=== PATIENT | male | born 1955 ===

== ENCOUNTER 2021-12-19 08:21 | Outpatient (REF) | payer MEDICARE, MEDICAID, SELFPAY ==
[2021-12-19 08:32] LABS: MANUAL DIFF FLAG NO
[2021-12-19 09:28] LABS: Basophils Percent Auto 0.5 % (0-2); Eosinophils Absolute Auto 0.4 X10*3/uL (0.0-0.4); Eosinophils Percent Auto 4.4 % (0-4); Hematocrit 43.6 % (42.0-52.0); Hemoglobin 14.2 g/dl (14.0-18.0); Imm Gran Abs Auto 0.01 X10*3/uL (0.00-0.03); Imm Gran Pct Auto 0.1 % (0.0-0.4); Lymphocytes Absolute Auto 3.2 X10*3/uL (1.2-4.9); Lymphocytes Percent Auto 39.7 % (20-40); Mean Corpuscular HGB Conc 32.6 g/dl (31.0-36.0); Mean Corpuscular Hemoglobin 25.8 pg (27.0-33.0); Mean Corpuscular Volume 79.1 fL (80.0-98.0); Mean Platelet Volume 9.7 fL (9.4-12.4); Monocytes Absolute Auto 0.5 X10*3/uL (0.1-1.2); Monocytes Percent Auto 6.6 % (2-11); Neutrophils Absolute Auto 3.9 x10*3/uL (2.0-8.3); Neutrophils Percent Auto 48.7 % (45-73); Platelet Count 234 X10*3/uL (160-400); Red Blood Count 5.51 X10*6/uL (4.60-5.80); Red Cell Distribution Width 14.7 % (11.0-16.0)
[2021-12-19 09:29] LABS: Appearance Urine CLEAR; Color Urine YELLOW; Glucose Urine UA NEG (NEG); Leukocyte Esterase Urine NEG (NEG); Nitrite Urine NEG (NEG); UACC Culture Trigger NO; Urine Blood TRACE (NEG); Urine Ketones NEG (NEG); Urine Protein NEG (NEG-TRACE)
[2021-12-19 09:46] LABS: Alanine Aminotransferase 30 U/L (0-40); Albumin Level 4.2 g/dL (3.5-5.0); Alkaline Phosphatase 65 U/L (39-117); Anion Gap 13 (12-20); Aspartate Amino Transferase 23 U/L (5-37); Bilirubin Total 0.9 mg/dL (0.0-1.0); Blood Urea Nitrogen 19 mg/dL (9-16); Calcium 9.7 mg/dL (8.4-10.2); Carbon Dioxide 31 mmol/L (22-29); Chloride 103 mmol/L (96-108); Cholesterol 176 mg/dL; Estimated Glomerular Filt Rate > 60; Glucose Fasting 133 mg/dL (60-99); HDL Cholesterol 51 mg/dL; LDL Cholesterol Calculated 102 mg/dl; Potassium 4.3 mmol/L (3.3-5.1); Sodium 143 mmol/L (135-145); Total Protein 7.6 g/dL (6.5-8.0); Triglycerides 118 mg/dL
[2021-12-19 09:51] LABS: Mucus Urine TRACE /LPF; RBC Urine 0-2 /HPF (0); Squamous Epithelial Cell Urine TRACE /LPF; WBC Urine 0 /HPF (0-4)
[2021-12-19 10:09] LABS: TSH reflex Free T4 1.05 uIU/mL (0.32-4.0); Vitamin D 25-OH Total 15.1 ng/mL (>30)
[2021-12-19 10:11] LABS: Estimated Average Glucose 157 mg/dL; Hemoglobin A1c % 7.1 %
[2021-12-19 14:41] LABS: Creatinine Urine 120.08 mg/dL; Microalbum/Creatinine Ratio Ur 5.8 ug/mg cr
== END 2021-12-19 08:22 | disposition home or self-care (01) ==
LOC: HO.LAB 08:21
PROVIDERS: PCP Internal Medicine; Visit Provider Internal Medicine
DX: E55.9 Vitamin D deficiency, unspecified (principal); E78.00 Pure hypercholesterolemia, unspecified; E11.9 Type 2 diabetes mellitus without complications; I10 Essential (primary) hypertension
CPT/HCPCS: 36415; 80053; 80061; 81001; 82043; 82306; 83036; 84443; 85025

== ENCOUNTER 2022-03-11 03:43 | Emergency (ER) | payer MEDICARE, MEDICAID, SELFPAY ==
[2022-03-11 03:59] VITALS: BP 134/87; PULSE 101; RESP 16; TEMP 36.4; O2SAT 95; BMI 30.9
--- NOTE | 2022-03-11 04:00 | ED.ALLEREA ---
HPI - Allergic Reaction General Chief complaint: Allergic Reaction Stated complaint: ?Itchy/?Allergic reaction Time Seen by Provider: 03/11/22 03:59 Source: patient and family () Mode of arrival: ambulatory Limitations: no limitations History of Present Illness HPI narrative: 67 years old male came in for evaluation after having allergic reaction. Patient ate tuna sandwich last night then shortly after started to have rash and itching, patient now complaining of difficulty breathing. No documented seafood allergy in the past. Patient is allergic to peanut. Related Data Previous Rx's Medication Instructions Recorded blood sugar diagnostic (FreeStyle #100 ea 12/18/21 Lite Strips) lancets 28 gauge (FreeStyle 28 gauge TOPICAL DAILY #100 ea 12/18/21 Lancets) metformin 500 mg tablet 500 mg PO DAILY 90 Days #90 tab 12/18/21 metoprolol tartrate 50 mg tablet 50 mg PO BID 90 Days #180 tab 12/18/21 simvastatin 20 mg tablet 20 mg PO BEDTIME 90 Days #90 tab 12/18/21 Allergies Allergy/AdvReac Type Severity Reaction Status Date / Time nut - unspecified Allergy Severe Difficulty Verified 03/11/22 04:02 Breathing Review of Systems Review of Systems: All other systems are reviewed and are negative Constitutional: Reports as per HPI and Reports no additional constitutional complaints Eyes: Reports as per HPI and Reports no additional eye complaints Reports system reviewed and no additional complaints, except as documented Cardiovascular: Reports as per HPI and Reports no additional cardiovascular complaints Respiratory: Reports as per HPI and Reports no additional respiratory complaints Gastrointestinal: Reports as per HPI and Reports no additional gastrointestinal complaints Genitourinary: Reports no additional female genitourinary complaints Musculoskeletal: Reports no additional musculoskeletal complaints Skin/Breast: Reports system reviewed and no additional complaints, except as docu Psychiatric: Reports no additional psychiatric complaints Endocrine: Reports no additional endocrine complaints Hematologic/Lymphatic: Reports no additional hematologic/lymphatic complaints Allergic/Immunologic: Reports no additional allergic/immunologic complaints Reports system reviewed and no additional complaints, except as documented and Reports Abnormal speech present [facility] Past Medical History Medical History Allergic rhinitis Benign prostatic hyperplasia without lower urinary tract symptoms Diabetes mellitus Facet arthritis, degenerative, cervical spine Hypertension Obesity (BMI 30-39.9) Primary osteoarthritis of left knee Pure hypercholesterolemia Vitamin D deficiency Surgical History History of cervical spinal surgery History of prostate biopsy (~2019) Family History Family History Father No problems noted. Mother No problems noted. Social History Social History Housing: House Patient Tobacco Use Status: Never used Tobacco e-Cigarette/Vaping Use: Never Used Second Hand Smoke Exposure: Yes Advance Directives: No Current occupational status: retired Cognitive needs: No Hearing needs: No Vision needs: No Physical Exam ED Vital Signs: Vital Signs - 24 hr 03/11/22 03:59 Temperature 97.6 F Pulse Rate 101 H Respiratory Rate 16 Blood Pressure 134/87 Pulse Oximetry 95 BMI result Body Mass Index 30.9 Vital signs have been reviewed as appeared to be correct. Blood pressure normal. Heart rate normal. Respiration rate normal. Temperature normal. Oxygen saturation normal. Appearance: Alert. Oriented X3. No acute distress. Head: Normal external exam. Normocephalic. Atraumatic. No Hyde signs noted. No raccoon eyes noted Eyes: PERRLA. EOMI. Conjunctiva and sclera normal. Eyelids normal. ENT: TM's Normal. Pharynx normal. Uvula midline. Moist mucous membranes. No trismus noted. No drooling noted. No muffled voice noted. Patent airway with no stridor. Neck: Normal inspection. Neck supple. FROM. No adenopathy. Thyroid Normal. No meningeal signs. No neck mass noted. CVS: Normal heart rate and rhythm. Heart sound normal. No murmurs noted. Pulses normal throughout. Respiratory: No respiratory distress. Painless inspiration. Breath sounds normal. No wheezes/rales/rhonchi noted. Chest nontender. No accessory muscle usage noted or decreased air movement noted. Abdomen: Soft and nontender. Bowel sounds normal in all 4 quadrants. No distention noted. No organomegaly noted. No visible injury noted. Back: No CVA tenderness. Full range of motion noted. Skin: Diffuse hives. Extremities: No lower extremity edema. Extremities exhibit normal range of motion. Extremities nontender. Neuro: Oriented X 3. Cranial nerve exam: II-XII are grossly intact No motor deficit. No sensory deficit. Reflexes normal. Course Course Course Narrative: Assessment and plan. Allergic reaction after eating tuna, patient responded well to IV fluids/Pepcid/Solu-Medrol/Benadryl IV. No hives, patent airway. Discharge Plan Discharge Clinical Impression: Allergic reaction Patient Disposition: Home, Self-Care Instructions: General Allergic Reaction (ED) Prescriptions: No Action (DME) FreeStyle Lite Strips Strip See Rx Instructions .ROUTE .MEDSUPPLY Qty: 100 11RF Rx Instructions: As directed once a day lancets [FreeStyle Lancets] 28 gauge misc 28 gauge topical DAILY Qty: 100 11RF Rx Instructions: test blood sugar as directed once a day metformin 500 mg tablet 500 mg PO DAILY 90 Days Qty: 90 1RF metoprolol tartrate 50 mg tablet 50 mg PO BID 90 Days Qty: 180 1RF simvastatin 20 mg tablet 20 mg PO BEDTIME 90 Days Qty: 90 1RF Referrals: Nir Moreno MD [Primary Care Provider] -
[2022-03-11] MEDS: methylPREDNISolone Sod Succ 125 MG/2 ML VIAL IVPUSH (04:10)
[2022-03-11] MEDS: diphenhydrAMINE HCL 50 MG/ML VIAL 25 MG IVPUSH (04:10)
[2022-03-11] MEDS: 0.9 % Sodium Chloride 1,000 ML 999 ML IV (04:10)
[2022-03-11] MEDS: Famotidine/PF 20 MG/2 ML VIAL IVPUSH (04:10)
--- NOTE | 2022-03-11 04:14 | PC.NURSE ---
MD at bedside, pt medicated per DEC.
--- NOTE | 2022-03-11 05:50 | PC.NURSE ---
Pt reports relief of hives/itching @ this time. aware.
== END 2022-03-11 06:47 | disposition home or self-care (01) ==
PROVIDERS: Emergency Provider Emergency Medicine; PCP Internal Medicine
DX: L50.0 Allergic urticaria (principal); Z79.899 Other long term (current) drug therapy
CPT/HCPCS: 96361; 96374; 96375; 99282; 99284; J1200; J2930

== ENCOUNTER 2022-04-15 07:14 | Outpatient (REF) | payer MEDICARE, MEDICAID, SELFPAY ==
[2022-04-15 08:02] LABS: Estimated Average Glucose 146 mg/dL; Hemoglobin A1c % 6.7 %
[2022-04-15 08:06] LABS: Appearance Urine CLEAR; Color Urine YELLOW; Glucose Urine UA NEG (NEG); Leukocyte Esterase Urine NEG (NEG); Nitrite Urine NEG (NEG); Specific Gravity - Urine 1.025 (1.005-1.025); UACC Culture Trigger NO; Urine Blood TRACE (NEG); Urine Ketones NEG (NEG); Urine Protein NEG (NEG-TRACE)
[2022-04-15 08:23] LABS: Creatinine Urine 133.06 mg/dL; Microalbum/Creatinine Ratio Ur 7.5 ug/mg cr
[2022-04-15 08:38] LABS: Alanine Aminotransferase 29 U/L (0-40); Albumin Level 4.2 g/dL (3.5-5.0); Alkaline Phosphatase 65 U/L (39-117); Anion Gap 12 (12-20); Aspartate Amino Transferase 19 U/L (5-37); Bilirubin Total 0.8 mg/dL (0.0-1.0); Blood Urea Nitrogen 18 mg/dL (9-16); Calcium 8.8 mg/dL (8.4-10.2); Carbon Dioxide 26 mmol/L (22-29); Chloride 104 mmol/L (96-108); Cholesterol 167 mg/dL; Estimated Glomerular Filt Rate > 60; Glucose Fasting 137 mg/dL (60-99); HDL Cholesterol 47 mg/dL; LDL Cholesterol Calculated 94 mg/dl; Potassium 4.1 mmol/L (3.3-5.1); Sodium 138 mmol/L (135-145); Total Protein 7.4 g/dL (6.5-8.0); Triglycerides 130 mg/dL
[2022-04-15 08:50] LABS: Vitamin D 25-OH Total 14.1 ng/mL (>30)
[2022-04-15 09:11] LABS: RBC Urine 0-2 /HPF (0); WBC Urine 0 /HPF (0-4)
== END 2022-04-15 07:15 | disposition home or self-care (01) ==
LOC: HO.LAB 07:14
PROVIDERS: PCP Internal Medicine; Visit Provider Internal Medicine
DX: E11.9 Type 2 diabetes mellitus without complications (principal); E55.9 Vitamin D deficiency, unspecified; E78.00 Pure hypercholesterolemia, unspecified
CPT/HCPCS: 36415; 80053; 80061; 81001; 81003; 82043; 82306; 83036

== ENCOUNTER 2022-08-24 08:07 | Outpatient (REF) | payer MEDICARE, MEDICAID, SELFPAY ==
[2022-08-24 08:15] LABS: MANUAL DIFF FLAG NO
[2022-08-24 08:46] LABS: Basophils Percent Auto 0.4 % (0-2); Eosinophils Absolute Auto 0.3 X10*3/uL (0.0-0.4); Eosinophils Percent Auto 4.8 % (0-4); Hematocrit 40.2 % (42.0-52.0); Imm Gran Abs Auto 0.01 X10*3/uL (0.00-0.03); Imm Gran Pct Auto 0.1 % (0.0-0.4); Lymphocytes Absolute Auto 2.2 X10*3/uL (1.2-4.9); Lymphocytes Percent Auto 32.1 % (20-40); Mean Corpuscular HGB Conc 32.3 g/dl (31.0-36.0); Mean Corpuscular Hemoglobin 25.6 pg (27.0-33.0); Mean Corpuscular Volume 79.1 fL (80.0-98.0); Mean Platelet Volume 10.4 fL (9.4-12.4); Monocytes Absolute Auto 0.5 X10*3/uL (0.1-1.2); Neutrophils Absolute Auto 3.7 x10*3/uL (2.0-8.3); Neutrophils Percent Auto 55.6 % (45-73); Platelet Count 214 X10*3/uL (160-400); Red Blood Count 5.08 X10*6/uL (4.60-5.80); Red Cell Distribution Width 14.8 % (11.0-16.0); White Blood Count 6.7 X10*3/uL (4.8-10.8)
[2022-08-24 08:55] LABS: Estimated Average Glucose 151 mg/dL; Hemoglobin A1c % 6.9 %
[2022-08-24 09:33] LABS: Alanine Aminotransferase 27 U/L (0-40); Albumin Level 4.2 g/dL (3.5-5.0); Alkaline Phosphatase 58 U/L (39-117); Anion Gap 14 (12-20); Aspartate Amino Transferase 20 U/L (5-37); Bilirubin Total 0.6 mg/dL (0.0-1.0); Blood Urea Nitrogen 18 mg/dL (9-16); Calcium 8.9 mg/dL (8.4-10.2); Carbon Dioxide 26 mmol/L (22-29); Chloride 106 mmol/L (96-108); Cholesterol 157 mg/dL; Estimated Glomerular Filt Rate 57; Glucose Fasting 130 mg/dL (60-99); HDL Cholesterol 47 mg/dL; LDL Cholesterol Calculated 85 mg/dl; Potassium 4.4 mmol/L (3.3-5.1); Sodium 142 mmol/L (135-145); Total Protein 7.3 g/dL (6.5-8.0); Triglycerides 129 mg/dL
[2022-08-24 09:41] LABS: TSH reflex Free T4 1.23 uIU/mL (0.32-4.0); Vitamin D 25-OH Total 14.6 ng/mL (>30)
[2022-08-24 10:42] LABS: Appearance Urine Clear; Color Urine Dark Yellow; Glucose Urine UA Negative (Negative); Leukocyte Esterase Urine Negative (Negative); Nitrite Urine Negative (Negative); PH 5.5 (5.0-9.0); Specific Gravity - Urine 1.025 (1.005-1.025); Urine Blood Negative (Negative); Urine Ketones Trace mg/dL (Negative); Urine Protein Trace mg/dL (Neg-Trace)
[2022-08-24 11:07] LABS: Creatinine Urine 344.22 mg/dL; Microalbum/Creatinine Ratio Ur 4.3 ug/mg cr
== END 2022-08-24 08:08 | disposition home or self-care (01) ==
LOC: HO.LAB 08:07
PROVIDERS: PCP Internal Medicine; Visit Provider Internal Medicine
DX: E11.9 Type 2 diabetes mellitus without complications (principal); I10 Essential (primary) hypertension; E55.9 Vitamin D deficiency, unspecified; E78.00 Pure hypercholesterolemia, unspecified
CPT/HCPCS: 36415; 80053; 80061; 81003; 82043; 82306; 83036; 84443; 85025

== ENCOUNTER 2023-06-03 16:22 | Outpatient (AMB) | payer MEDICARE, MEDICAID, SELFPAY ==
[2023-06-03 16:23] VITALS: BP 136/88; PULSE 83; O2SAT 96; BMI 32.0
--- NOTE | 2023-06-03 16:23 | A.OFFPC_ITS ---
Vital Signs 06/03/23 16:23 Height 5 ft 4 in Weight 186 lb 6 oz BMI 32.0 BP 136/88 Blood Pressure Location Lt brachial Position Sitting Pulse 83 Pulse Source Pulse Oximeter Pulse Oximetry (%) 96 Oxygen Delivery Method Room Air Intake Visit Reasons: DM, hyperlipidemia, elevated LFTs Mine Promotor Required: No Accompanied by: Self / Same As Patient Allergies nut - unspecified Allergy (Severe, Verified 06/03/23 16:56) Difficulty Breathing Medication List - Last Reconciled 06/03/23 by Nir Moreno MD blood sugar diagnostic (FreeStyle Lite Strips) As directed once a day lancets (FreeStyle Lancets) 28 gauge topical DAILY metformin 500 mg PO DAILY 90 days metoprolol tartrate 50 mg PO BID 90 days simvastatin 20 mg PO BEDTIME 90 days Tobacco use date assessed: 06/03/23 Fall risk assessment: No Falls in past year Last assessed Fall Risk: 06/03/23 Dental Screening Dental Screen Date: 06/03/23 Did you have a dental visit in the last 12 months?: No Did you have a dental problem in the last 6 months where you did not have access to dental care?: No Was dental information given to patient?: No HPI DM, hyperlipidemia, elevated LFTs HPI Details Patient comes in today for his follow up visit - was last seen in July 2022 as he missed his follow up appt earlier this year Patient states that he feels okay He denies any headaches or dizziness He denies any chest pains, no shortness of breath No nausea / vomiting, no abdominal pain No change in bowel habits noted Needs several of his Rx refilled Has no follow-up labs done recently [facility] Medical History Allergic rhinitis Benign prostatic hyperplasia without lower urinary tract symptoms Diabetes mellitus Facet arthritis, degenerative, cervical spine Hypertension Obesity (BMI 30-39.9) Primary osteoarthritis of left knee Pure hypercholesterolemia Vitamin D deficiency Surgical History History of cervical spinal surgery History of prostate biopsy (~2019) Family History Father No problems noted. Mother No problems noted. Social History Housing: House Patient Tobacco Use Status: Never used Tobacco e-Cigarette/Vaping Use: Never Used Second Hand Smoke Exposure: Yes Current occupational status: retired Cognitive needs: No Hearing needs: No Vision needs: Yes Questionnaire PHQ-9 Over the last 2 weeks, how often have you been bothered by any of the following problems? 1. Little interest or pleasure in doing things: not at all 2. Feeling down, depressed, or hopeless: not at all 3. Trouble falling or staying asleep, or sleeping too much: not at all 4. Feeling tired or having little energy: not at all 5. Poor appetite or overeating: not at all 6. Feeling bad about yourself - or that you are a failure or have let yourself or your family down: not at all 7. Trouble concentrating on things, such as reading the newspaper or watching television: not at all 8. Moving or speaking so slowly that other people could have noticed. Or the opposite - being so fidgety or restless that you have been moving around a lot more than usual: not at all 9. Thoughts that you would be better off or of hurting yourself in some way: not at all Total score: 0 Depression Screening Interpretation: Negative 52596 - PHQ-9 Billing: Yes Source: Developed by Drs. Sherman Morales, Kathrine Rolon, Maurilio Rodriguez and colleagues, with an educational maci from [employer]. Thrive Questionnaire Date Thrive assessed: 06/03/23 I am a: Patient What is your living situation today?: I have a steady place to live Within the past 12 months, did the food you bought not last and you didn't have the money to get more?: Never true Within the past 12 months, did you worry whether your food would run out before you got money to buy more?: Never true Do you have trouble paying for medicines?: No Do you have trouble getting transportation to medical appointments?: No Do you have trouble paying your heating and electricity bill?: No Do you have trouble taking care of your child, family member or friend?: No Do you have trouble with day-to-day activities such as bathing, preparing meals, shopping, managing finances, etc.?: No Are you currently unemployed and looking for a job?: No Are you interested in more education?: No Please select the resources that you would like help with: None Currently or been in a relationship where the following occur: no concerns reported AUDIT C Alcohol Use Questionnaire (AUDIT-C) 1. How often do you have a drink containing alcohol?: Never 3. How often do you have six or more drinks on one occasion?: Never Total Score: 0 Score Reviewed/Action Taken: Yes PILY-7 AMB Questionnaire PILY-7 Date PILY - 7 assessed: 06/03/23 Feeling nervous, anxious, or on edge: 0 = Not at all Not being able to stop or control worryin = Not at all Worrying too much about different things: 0 = Not at all Trouble relaxin = Not at all Being so restless that it is hard to sit still: 0 = Not at all Becoming easily annoyed or irritable: 0 = Not at all Feeling afraid as if something awful might happen: 0 = Not at all Total PILY-7 score (0-4 normal; 5-9 mild; 10-14 moderate; 15-21 severe): 0 Source: Developed by Drs. Sherman Morales, Kathrine Rolon, Maurilio Rodriguez and colleagues, with an educational maci from [employer]. Review of Systems Const Denies fatigue, Denies fever(s) and Denies headache(s) ENT Denies dysphagia, Denies dizziness, Denies otalgia, Denies headache(s), Reports neck pain (recurrent - Ibuprofen PRN helps) and Denies sore throat Card Denies chest pain, Denies palpitations and Denies dyspnea Resp Denies cough, Denies dyspnea and Denies wheezing GI Denies abdominal pain, Denies constipation, Denies dysphagia, Denies heartburn, Denies diarrhea, Denies nausea and Denies vomiting Denies dysuria and Denies nocturia Musc Reports arthralgias (left knee, on and off) and Reports neck pain (recurrent - Ibuprofen PRN helps) Neuro Denies dizziness and Denies headache(s) Endo Denies fatigue and Denies palpitations Aller/Immun Denies wheezing Physical exam (Primary Care) Vital Signs: Last Vital Signs Pulse 83 06/03/23 16:23 BP 136/88 08/11/23 16:23 Pulse Ox 96 06/03/23 16:23 Oxygen Delivery Method Room Air 06/03/23 16:23 BMI result Body Mass Index 32.0 Tobacco/Smoking Status: Tobacco use Status Tobacco use date assessed 06/03/23 06/03/23 16:30 Patient Tobacco Use Status Never used Tobacco 06/03/23 16:30 e-Cigarette/Vaping Use Never Used 06/03/23 16:30 PHQ-9: PHQ-9 Score PHQ-9: Total score 0 06/03/23 16:56 Depression Screening Interpretation: Negative Thrive Assessment: Date of Thrive Assessment Date Thrive assessed 06/03/23 06/03/23 16:30 Currently or been in a relationship where the following occur: no concerns reported Const General: no acute distress and alert HENMT Ears: TM's normal bilaterally and EAC's normal Throat: Yes posterior oropharynx normal and Yes tonsils normal (no TP congestion) Neck Neck: Yes no lymphadenopathy Resp Auscultation: clear to auscultation bilaterally, no rales and no wheezes Cardio Rate: regular rate Rhythm: regular rhythm Heart sounds: no murmurs GI Palpation (GI): Soft to palpation and nontender Auscultation: normal bowel sounds Back/Spine/Pelvis Cervical Spine: Cervical spine tenderness Thoracic/Lumbar Spine: lumbar spinal tenderness Extrem General: Yes no clubbing, cyanosis or edema Left lower extremity: knee Details: tenderness Results AMB Hemoglobin A1c AMB Hemoglobin A1c 7.0 % Last Edit by Isha Watson on 06/03/23 16:42 Results Reviewed Results Reviewed: Laboratory Last Values Hgb A1c (Clinic) 7.0 % (4.0-6.0) H 06/03/23 16:26 Assessment and Plan Assessment & Plan (1) Diabetes mellitus: Code(s): E11.9 - Type 2 diabetes mellitus without complications Qualifiers: Diabetes mellitus complication status: without complication Diabetes mellitus long term care social worker insulin use: without long term care social worker use Diabetes mellitus type: type 2 Qualified Code(s): E11.9 - Type 2 diabetes mellitus without compl ications Plan: In-office HgbA1c done today is at 7.0% (HgbA1c was at 6.9% when last checked in August 2022) - goal is <7.0% Reinforced diabetic diet Continue Metformin 500 mg QD (2) Hypertension: Code(s): I10 - Essential (primary) hypertension Qualifiers: Hypertension type: primary hypertension Qualified Code(s): I10 - Essential (primary) hypertension Plan: Reinforced low sodium diet - goal is systolic BP of 120 to 130 mm or less Continue Metoprolol tartrate 50 mg BID (3) Pure hypercholesterolemia: Code(s): E78.00 - Pure hypercholesterolemia, unspecified Plan: Has no follow up labs done prior to his appt today as he has not been back since August 2022 Reinforced low cholesterol diet Continue Simvastatin 20 mg Q HS - Rx refilled Will recheck labs his in 4 months for follow up (4) Facet arthritis, degenerative, cervical spine: Comment: S/P ACDF and posterior spinal fusion a few years ago - injury due to fall at [employer] in 2012 Code(s): M47.812 - Spondylosis without myelopathy or radiculopathy, cervical region Plan: Cerivcal spine x-rays done a couple of years ago showed (+) bony foraminal inpingement at C6-C6 bilaterally States that he has been able to manage his neck pains adequately and takes some OTC Ibuprofen when needed with (+) relief (5) Primary osteoarthritis of left knee: Code(s): M17.12 - Unilateral primary osteoarthritis, left knee Plan: Left knee x-rays last done back in October 2017 showed (+) minimal medial compartment narrowing Consider orthopedics referral if his knee symptoms progress or get worse (6) Vitamin D deficiency: Code(s): E55.9 - Vitamin D deficiency, unspecified Plan: Continue Vitamin D3 2000 units QD (7) Allergic rhinitis: Code(s): J30.9 - Allergic rhinitis, unspecified Qualifiers: Allergic rhinitis seasonality: unspecified Allergic rhinitis trigger: unspecified Qualified Code(s): J30.9 - Allergic rhinitis, unspecified Plan: Continue OTC Loratadine 10 mg QD PRN (8) Benign prostatic hyperplasia without lower urinary tract symptoms: Comment: S/P US-guided biopsy in 2019 - benign Code(s): N40.0 - Benign prostatic hyperplasia without lower urinary tract symptoms Plan: Continue Finasteride 5 mg QD Follow up with urology as scheduled (9) Obesity (BMI 30-39.9): Code(s): E66.9 - Obesity, unspecified Plan: Reinforced diet/exercise as tolerated/lose weight Plan Follow up in 4 months Orders: Orders Complete Blood Count Auto Diff 4 Months I10 - Essential (primary) hypertension Comprehensive Allgood. Panel Fast 4 Months E78.00 - Pure hypercholesterolemia, unspecified Lipid Panel 4 Months E78.00 - Pure hypercholesterolemia, unspecified Hemoglobin A1c 4 Months E11.9 - Type 2 diabetes mellitus without complications TSH reflex Free T4 4 Months E78.00 - Pure hypercholesterolemia, unspecified Vitamin D 25-OH Total 4 Months E55.9 - Vitamin D deficiency, unspecified Microalbumin, Random (w Creat) 4 Months E11.9 - Type 2 diabetes mellitus without complications UA CC w/rflx Micro + Cult 4 Months R30.0 - Dysuria AMB Hemoglobin A1c 06/03/23 E11.9 - Type 2 diabetes mellitus without complications Medications: Refilled simvastatin 20 mg PO BEDTIME 90 days 90 tabs 1RF metformin 500 mg PO DAILY 90 days 90 tabs 1RF E11.9 - Type 2 diabetes mellitus without complications metoprolol tartrate 50 mg PO BID 90 days 180 tabs 1RF I10 - Essential (primary) hypertension blood sugar diagnostic (FreeStyle Lite Strips) As directed once a day 100 ea 11RF E11.9 - Type 2 diabetes mellitus without complications lancets (FreeStyle Lancets) test blood sugar as directed once a day 28 gauge topical DAILY 100 ea 11RF E11.9 - Type 2 diabetes mellitus without complications Coding Level of Care Code Est Pt Level 4 (01503) Diagnoses Diabetes mellitus E11.9 Diabetes mellitus complication status: without complication Diabetes mellitus long term care social worker insulin use: without long term care social worker use Diabetes mellitus type: type 2 Hypertension I10 Hypertension type: primary hypertension Pure hypercholesterolemia E78.00 Facet arthritis, degenerative, cervical spine M47.812 Primary osteoarthritis of left knee M17.12 Vitamin D deficiency E55.9 Allergic rhinitis J30.9 Allergic rhinitis seasonality: unspecified Allergic rhinitis trigger: unspecified Benign prostatic hyperplasia without lower urinary tract symptoms N40.0 Obesity (BMI 30-39.9) E66.9
== END 2023-06-03 17:01 | disposition home or self-care (01) ==
PROVIDERS: Visit Provider Internal Medicine
DX: E11.9 Type 2 diabetes mellitus without complications (principal); I10 Essential (primary) hypertension; E55.9 Vitamin D deficiency, unspecified; E78.00 Pure hypercholesterolemia, unspecified; M47.812 Spondylosis without myelopathy or radiculopathy, cervical region; M17.12 Unilateral primary osteoarthritis, left knee; J30.9 Allergic rhinitis, unspecified; N40.0 Benign prostatic hyperplasia without lower urinary tract symptoms; E66.9 Obesity, unspecified
CPT/HCPCS: 83036; 99214

== ENCOUNTER 2023-10-03 06:53 | Outpatient (REF) | payer MEDICARE, MEDICAID, SELFPAY ==
[2023-10-03 07:16] LABS: MANUAL DIFF FLAG NO
[2023-10-03 07:46] LABS: Basophils Percent Auto 0.5 % (0-2); Eosinophils Absolute Auto 0.3 X10*3/uL (0.0-0.4); Eosinophils Percent Auto 4.3 % (0-4); Hematocrit 42.2 % (42.0-52.0); Hemoglobin 13.7 g/dl (14.0-18.0); Imm Gran Abs Auto 0.01 X10*3/uL (0.00-0.03); Imm Gran Pct Auto 0.1 % (0.0-0.4); Lymphocytes Absolute Auto 2.5 X10*3/uL (1.2-4.9); Lymphocytes Percent Auto 34.1 % (20-40); Mean Corpuscular HGB Conc 32.5 g/dl (31.0-36.0); Mean Corpuscular Hemoglobin 25.5 pg (27.0-33.0); Mean Corpuscular Volume 78.4 fL (80.0-98.0); Monocytes Absolute Auto 0.5 X10*3/uL (0.1-1.2); Monocytes Percent Auto 7.1 % (2-11); Neutrophils Percent Auto 53.9 % (45-73); Platelet Count 234 X10*3/uL (160-400); Red Blood Count 5.38 X10*6/uL (4.60-5.80); Red Cell Distribution Width 14.8 % (11.0-16.0); White Blood Count 7.5 X10*3/uL (4.8-10.8)
[2023-10-03 07:56] LABS: Estimated Average Glucose 169 mg/dL; Hemoglobin A1c % 7.5 % (<6.0)
[2023-10-03 08:08] LABS: Microalbum/Creatinine Ratio Ur 5.6 ug/mg cr (<30)
[2023-10-03 08:10] LABS: Appearance Urine Clear; Color Urine Dark Yellow; Glucose Urine UA 250 mg/dL (Negative); Leukocyte Esterase Urine Negative (Negative); Nitrite Urine Negative (Negative); PH 5.5 (5.0-9.0); Specific Gravity - Urine >= 1.030 (1.005-1.025); Urine Blood Negative (Negative); Urine Ketones Trace mg/dL (Negative); Urine Protein Trace mg/dL (Neg-Trace)
[2023-10-03 08:19] LABS: Alanine Aminotransferase 21 U/L (0-40); Albumin Level 4.2 g/dL (3.5-5.0); Alkaline Phosphatase 60 U/L (39-117); Anion Gap 16 (12-20); Aspartate Amino Transferase 17 U/L (5-37); Bilirubin Total 0.7 mg/dL (0.0-1.0); Blood Urea Nitrogen 18 mg/dL (9-16); Calcium 9.3 mg/dL (8.4-10.2); Carbon Dioxide 26 mmol/L (22-29); Chloride 106 mmol/L (96-108); Cholesterol 177 mg/dL (<200); Estimated Glomerular Filt Rate 58; Glucose Fasting 150 mg/dL (60-99); HDL Cholesterol 45 mg/dL (>40); LDL Cholesterol Calculated 95 mg/dL (<100); Potassium 3.8 mmol/L (3.3-5.1); Sodium 144 mmol/L (135-145); Total Protein 7.8 g/dL (6.5-8.0); Triglycerides 188 mg/dL (<150)
== END 2023-10-03 06:54 | disposition home or self-care (01) ==
LOC: HO.LAB 06:53
PROVIDERS: PCP Internal Medicine; Visit Provider Internal Medicine
DX: E11.9 Type 2 diabetes mellitus without complications (principal); E78.00 Pure hypercholesterolemia, unspecified; I10 Essential (primary) hypertension; E55.9 Vitamin D deficiency, unspecified; R30.0 Dysuria
CPT/HCPCS: 36415; 80053; 80061; 81003; 82043; 82306; 82570; 83036; 84443; 85025

== ENCOUNTER 2023-10-03 16:13 | Outpatient (AMB) | payer MEDICARE, MEDICAID, SELFPAY ==
[2023-10-03 16:20] VITALS: BP 160/86; PULSE 85; O2SAT 96; BMI 31.9
--- NOTE | 2023-10-03 16:20 | MHC.PC.OV ---
Vital Signs 10/03/23 16:20 10/03/23 17:08 Height 5 ft 4 in Weight 186 lb BMI 31.9 BP 160/86 H 140/88 H Blood Pressure Location Lt brachial Lt brachial Position Sitting Sitting Pulse 85 Pulse Source Pulse Oximeter Pulse Oximetry (%) 96 Oxygen Delivery Method Room Air Intake Visit Reasons: DM, hyperlipidemia, HTN [employer] Attendant Required: No Power Checker: Not Required per policy Accompanied by: Self / Same As Patient Allergies nut - unspecified Allergy (Severe, Verified 10/03/23 17:09) Difficulty Breathing Medication List - Last Reconciled 10/03/23 by Nir Moreno MD blood sugar diagnostic (FreeStyle Lite Strips) As directed once a day cholecalciferol (vitamin D3) 50 mcg PO DAILY 90 days lancets (FreeStyle Lancets) 28 gauge topical DAILY metformin 500 mg PO DAILY 90 days metoprolol tartrate 50 mg PO BID 90 days simvastatin 20 mg PO BEDTIME 90 days Tobacco use date assessed: 06/03/23 Fall risk assessment: No Falls in past year Last assessed Fall Risk: 10/03/23 Dental Screening Dental Screen Date: 10/03/23 Did you have a dental visit in the last 12 months?: No Did you have a dental problem in the last 6 months where you did not have access to dental care?: No Was dental information given to patient?: Patient has dentist HPI DM, hyperlipidemia, HTN HPI Details Patient comes in today for his follow up visit States that he feels okay He denies any headaches or dizziness Denies any chest pains, no SOB No nausea/vomiting, no abdominal pain No change in bowel habits noted Needs all of his Rx refilled Had his follow up labs done earlier this morning - to discuss his results Would also like to get his flu shot today [facility] Medical History Obesity (BMI 30-39.9) Benign prostatic hyperplasia without lower urinary tract symptoms Allergic rhinitis Vitamin D deficiency Primary osteoarthritis of left knee Facet arthritis, degenerative, cervical spine Pure hypercholesterolemia Diabetes mellitus Hypertension Surgical History History of prostate biopsy (~2019) History of cervical spinal surgery Family History Father No problems noted. Mother No problems noted. Social History Housing: House Patient Tobacco Use Status: Never used Tobacco e-Cigarette/Vaping Use: Never Used Second Hand Smoke Exposure: Yes Current occupational status: retired Cognitive needs: No Hearing needs: No Vision needs: Yes Questionnaire PHQ-9 Over the last 2 weeks, how often have you been bothered by any of the following problems? Depression Screening Interpretation: Negative Depression Screening Done: Yes Source: Developed by Drs. Sherman Morales, Kathrine Rolon, Maurilio Rodriguez and colleagues, with an educational maci from [employer]. Thrive Questionnaire Date Thrive assessed: 06/03/23 Currently or been in a relationship where the following occur: no concerns reported PILY-7 AMB Questionnaire PILY-7 Date PILY - 7 assessed: 06/03/23 Source: Developed by Drs. Sherman Morales, Kathrine Rolon, Mauriloi Rodriguez and colleagues, with an educational maci from [employer]. Review of Systems Const Denies fatigue, Denies fever(s) and Denies headache(s) ENT Denies dysphagia, Denies dizziness, Denies otalgia, Denies headache(s), Reports neck pain (recurrent - Ibuprofen PRN helps) and Denies sore throat Card Denies chest pain, Denies palpitations and Denies dyspnea Resp Denies cough, Denies dyspnea and Denies wheezing GI Denies abdominal pain, Denies constipation, Denies dysphagia, Denies heartburn, Denies diarrhea, Denies nausea and Denies vomiting Denies dysuria and Denies nocturia Musc Reports arthralgias (left knee, on and off) and Reports neck pain (recurrent - Ibuprofen PRN helps) Neuro Denies dizziness and Denies headache(s) Endo Denies fatigue and Denies palpitations Aller/Immun Denies wheezing Physical exam (Primary Care) Vital Signs: Last Vital Signs Pulse 85 10/03/23 16:20 BP 140/88 H 10/03/23 17:08 Pulse Ox 96 10/03/23 16:20 Oxygen Delivery Method Room Air 10/03/23 16:20 BMI result Body Mass Index 31.9 Tobacco/Smoking Status: Tobacco use Status Tobacco use date assessed 06/03/23 10/03/23 16:21 Patient Tobacco Use Status Never used Tobacco 10/03/23 16:21 e-Cigarette/Vaping Use Never Used 10/03/23 16:21 Depression Screening Interpretation: Negative Thrive Assessment: Date of Thrive Assessment Date Thrive assessed 06/03/23 10/03/23 16:21 Currently or been in a relationship where the following occur: no concerns reported Const General: no acute distress and alert HENMT Ears: TM's normal bilaterally and EAC's normal Throat: Yes posterior oropharynx normal and Yes tonsils normal (no TP congestion) Neck Neck: Yes no lymphadenopathy Resp Auscultation: clear to auscultation bilaterally, no rales and no wheezes Cardio Rate: regular rate Rhythm: regular rhythm Heart sounds: no murmurs GI Palpation (GI): Soft to palpation and nontender Auscultation: normal bowel sounds Back/Spine/Pelvis Cervical Spine: Cervical spine tenderness Thoracic/Lumbar Spine: lumbar spinal tenderness Extrem General: Yes no clubbing, cyanosis or edema Left lower extremity: knee Details: tenderness Office Procedures Flu Questionnaire Does the patient have a severe egg allergy?: No Does the patient have severe life threatening allergies?: No Does the patient have a fever or illness today?: No Has the patient ever had Guillain-Harwood Syndrome?: No Has the patient ever had any past reaction to a flu shot?: No Immunizations flu vacc [id number] 6mos up(PF) 60 mcg(15 mcgx4)/0.5 mL IM syringe Performing Provider: Nir Moreno MD Performing Location: [facility] Administered by: NEGRITO Wilkes on 10/03/23 17:10 Dose Route Admin Location Dispensed Lot Number Expiration Date NDC [employer] 0.5 mL IM Left Deltoid 0.5 mL [id number] 04/22/24 94438-310-16 [employer]lst VIS Given Date VIS Provided VIS Publication Date 10/03/23 Single Vaccine 21 Eligibility Eligibility Date Funding Source Not [facility] Eligible 10/03/23 Private Results Reviewed Results Reviewed: Laboratory Tests 10/03/23 10/03/23 07:09 07:13 WBC 7.5 Hgb 13.7 L Hct 42.2 Plt Count 234 Sodium 144 Potassium 3.8 Creatinine 1.24 Estimated GFR 58 Fasting Glucose 150 H Hemoglobin A1c % 7.5 H Calcium 9.3 AST 17 ALT 21 Triglycerides 188 H Cholesterol 177 LDL Cholesterol, Calc 95 HDL Cholesterol 45 25-OH Vitamin D Total 17.0 L TSH 1.20 Ur Specific [place] >= 1.030 H Urine Protein Trace Urine Glucose (UA) 250 H Urine Blood Negative Microalb/Creat Ratio 5.6 Assessment and Plan Assessment & Plan (1) Diabetes mellitus: Code(s): E11.9 - Type 2 diabetes mellitus without complications Qualifiers: Diabetes mellitus complication status: without complication Diabetes mellitus prison insulin use: without prison use Diabetes mellitus type: type 2 Qualified Code(s): E11.9 - Type 2 diabetes mellitus without complications Plan: His HgbA1c is at 7.5% on his labs done earlier today (in-office HgbA1c was at 7.0% a few months ago) - goal is <7.0% Reinforced diabetic diet Continue Metformin 500 mg QD for now but advised that if his glycemic control does not improve significantly at his next visit, then we will likely need to increase his Metformin to BID dosing (2) Hypertension: Code(s): I10 - Essential (primary) hypertension Qualifiers: Hypertension type: primary hypertension Qualified Code(s): I10 - Essential (primary) hypertension Plan: Reinforced low sodium diet - goal is systolic BP of 120 to 130 mm or less Continue Metoprolol tartrate 50 mg BID (3) Pure hypercholesterolemia: Code(s): E78.00 - Pure hypercholesterolemia, unspecified Plan: Results of his labs done earlier today reviewed and discussed with patient - advised that his serum triglyceride level has increased from previous, likely in conjunction with the increase in his HgbA1c anf that this should improve with better control of his diabetes Reinforced low cholesterol diet Continue Simvastatin 20 mg Q HS Will recheck his labs and fasting lipids in 4 months for follow up (4) Facet arthritis, degenerative, cervical spine: Comment: S/P ACDF and posterior spinal fusion a few years ago - injury due to fall at [employer] in 2012 Code(s): M47.812 - Spondylosis without myelopathy or radiculopathy, cervical region Plan: Cerivcal spine x-rays done a couple of years ago showed (+) bony foraminal inpingement at C6-C6 bilaterally States that he has been able to manage his neck pains adequately - takes some OTC Ibuprofen when needed with (+) relief (5) Primary osteoarthritis of left knee: Code(s): M17.12 - Unilateral primary osteoarthritis, left knee Plan: Left knee x-rays last done back in October 2017 showed (+) minimal medial compartment narrowing Will consider orthopedics referral if his knee symptoms progress or get worse (6) Vitamin D deficiency: Code(s): E55.9 - Vitamin D deficiency, unspecified Plan: Advised that his Vitamin D level remains very low on his recent labs Patient admits that he has not been taking his Vitamin D3 regularly Will start him back on Vitamin D3 2000 units QD (7) Allergic rhinitis: Code(s): J30.9 - Allergic rhinitis, unspecified Qualifiers: Allergic rhinitis seasonality: unspecified Allergic rhinitis trigger: unspecified Qualified Code(s): J30.9 - Allergic rhinitis, unspecified Plan: Continue OTC Loratadine 10 mg QD PRN (8) Benign prostatic hyperplasia without lower urinary tract symptoms: Comment: S/P US-guided biopsy in 2019 - benign Code(s): N40.0 - Benign prostatic hyperplasia without lower urinary tract symptoms Plan: Continue Finasteride 5 mg QD Follow up with urology as scheduled (9) Obesity (BMI 30-39.9): Code(s): E66.9 - Obesity, unspecified Plan: Reinforced diet/exercise as tolerated/lose weight Plan Flu vaccine given today Follow up in 4 months Orders: Orders Hemoglobin A1c 4 Months E11.9 - Type 2 diabetes mellitus without complications Complete Blood Count Auto Diff 4 Months I10 - Essential (primary) hypertension Comprehensive [place]. Panel Fast 4 Months E78.00 - Pure hypercholesterolemia, unspecified Microalbumin, Random (w Creat) 4 Months E11.9 - Type 2 diabetes mellitus without complications UA CC w/rflx Micro + Cult 4 Months R30.0 - Dysuria TSH reflex Free T4 4 Months E78.00 - Pure hypercholesterolemia, unspecified Vitamin D 25-OH Total 4 Months E55.9 - Vitamin D deficiency, unspecified Lipid Panel 4 Months E78.00 - Pure hypercholesterolemia, unspecified Influenza [id number] Immunization Today Z23 - Encounter for immunization Medications: New cholecalciferol (vitamin D3) 50 mcg PO DAILY 90 days 90 caps 3RF E55.9 - Vitamin D deficiency, unspecified Refilled metformin 500 mg PO DAILY 90 days 90 tabs 1RF E11.9 - Type 2 diabetes mellitus without complications metoprolol tartrate 50 mg PO BID 90 days 180 tabs 1RF I10 - Essential (primary) hypertension simvastatin 20 mg PO BEDTIME 90 days 90 tabs 1RF Coding Level of Care Code Est Pt Level 4 (38833) Diagnoses Type 2 diabetes mellitus without complication, without long-term current use of insulin E11.9 Diabetes mellitus complication status: without complication Diabetes mellitus intermodal customer service insulin use: without intermodal customer service use Diabetes mellitus type: type 2 Primary hypertension I10 Hypertension type: primary hypertension Pure hypercholesterolemia E78.00 Facet arthritis, degenerative, cervical spine M47.812 Primary osteoarthritis of left knee M17.12 Vitamin D deficiency E55.9 Allergic rhinitis, unspecified seasonality, unspecified trigger J30.9 Allergic rhinitis seasonality: unspecified Allergic rhinitis trigger: unspecified Benign prostatic hyperplasia without lower urinary tract symptoms N40.0 Obesity (BMI 30-39.9) E66.9
[2023-10-03 17:08] VITALS: BP 140/88
== END 2023-10-03 17:12 | disposition home or self-care (01) ==
PROVIDERS: PCP Internal Medicine; Visit Provider Internal Medicine
DX: E11.9 Type 2 diabetes mellitus without complications (principal); E66.9 Obesity, unspecified; Z68.31 Body mass index [BMI] 31.0-31.9, adult; Z23 Encounter for immunization; I10 Essential (primary) hypertension; E78.00 Pure hypercholesterolemia, unspecified; M47.812 Spondylosis without myelopathy or radiculopathy, cervical region; M17.12 Unilateral primary osteoarthritis, left knee; E55.9 Vitamin D deficiency, unspecified; J30.9 Allergic rhinitis, unspecified; N40.0 Benign prostatic hyperplasia without lower urinary tract symptoms
CPT/HCPCS: 90471; 90686; 99214

== ENCOUNTER 2024-02-06 07:35 | Outpatient (REF) | payer MEDICARE, MEDICAID, SELFPAY ==
[2024-02-06 07:57] LABS: MANUAL DIFF FLAG NO
[2024-02-06 08:25] LABS: Appearance Urine Clear; Color Urine Yellow; Glucose Urine UA Negative (Negative); Leukocyte Esterase Urine Negative (Negative); Nitrite Urine Negative (Negative); PH 5.5 (5.0-9.0); Specific Gravity - Urine >= 1.030 (1.005-1.025); UMIC TRIGGER UACC YES; Urine Blood Negative (Negative); Urine Ketones Trace mg/dL (Negative); Urine Protein 30 (1+) mg/dL (Neg-Trace)
[2024-02-06 08:31] LABS: Basophils Percent Auto 0.3 % (0-2); Eosinophils Absolute Auto 0.1 X10*3/uL (0.0-0.4); Eosinophils Percent Auto 1.5 % (0-4); Hematocrit 39.8 % (42.0-52.0); Hemoglobin 13.4 g/dl (14.0-18.0); Imm Gran Abs Auto 0.02 X10*3/uL (0.00-0.03); Imm Gran Pct Auto 0.3 % (0.0-0.4); Lymphocytes Absolute Auto 2.1 X10*3/uL (1.2-4.9); Lymphocytes Percent Auto 36.3 % (20-40); Mean Corpuscular HGB Conc 33.7 g/dl (31.0-36.0); Mean Corpuscular Hemoglobin 26.1 pg (27.0-33.0); Mean Corpuscular Volume 77.4 fL (80.0-98.0); Mean Platelet Volume 10.4 fL (9.4-12.4); Monocytes Absolute Auto 0.7 X10*3/uL (0.1-1.2); Monocytes Percent Auto 11.4 % (2-11); Neutrophils Absolute Auto 2.9 x10*3/uL (2.0-8.3); Neutrophils Percent Auto 50.2 % (45-73); Platelet Count 201 X10*3/uL (160-400); Red Blood Count 5.14 X10*6/uL (4.60-5.80); Red Cell Distribution Width 14.8 % (11.0-16.0); White Blood Count 5.8 X10*3/uL (4.8-10.8)
[2024-02-06 08:32] LABS: Bacteria Urine None Seen (None Seen); RBC Urine 0-2 /HPF (0-2); Squamous Epithelial Cell Urine 0-2 /HPF (0-2); WBC Urine 0-5 /HPF (0-5)
[2024-02-06 08:43] LABS: Estimated Average Glucose 171 mg/dL; Hemoglobin A1c % 7.6 % (<6.0)
[2024-02-06 09:13] LABS: Alanine Aminotransferase 51 U/L (0-40); Albumin Level 4.1 g/dL (3.5-5.0); Alkaline Phosphatase 72 U/L (39-117); Anion Gap 13 (12-20); Aspartate Amino Transferase 44 U/L (5-37); Bilirubin Total 0.4 mg/dL (0.0-1.0); Blood Urea Nitrogen 17 mg/dL (9-16); Calcium 8.7 mg/dL (8.4-10.2); Carbon Dioxide 23 mmol/L (22-29); Chloride 104 mmol/L (96-108); Cholesterol 131 mg/dL (<200); Estimated Glomerular Filt Rate 55; Glucose Fasting 167 mg/dL (60-99); HDL Cholesterol 44 mg/dL (>40); LDL Cholesterol Calculated 72 mg/dL (<100); Potassium 3.8 mmol/L (3.3-5.1); Sodium 136 mmol/L (135-145); Total Protein 7.8 g/dL (6.5-8.0); Triglycerides 76 mg/dL (<150)
[2024-02-06 09:13] LABS: Creatinine Urine 303.13 mg/dL; Microalbum/Creatinine Ratio Ur 20.1 ug/mg cr (<30)
[2024-02-06 09:30] LABS: TSH reflex Free T4 0.33 uIU/mL (0.32-4.0); Vitamin D 25-OH Total 31.9 ng/mL (>30)
== END 2024-02-06 07:36 | disposition home or self-care (01) ==
LOC: HO.LAB 07:35
PROVIDERS: PCP Internal Medicine; Visit Provider Internal Medicine
DX: R30.0 Dysuria (principal)
CPT/HCPCS: 36415; 80053; 80061; 81001; 82043; 82306; 82570; 83036; 84443; 85025

== ENCOUNTER 2024-02-07 16:30 | Outpatient (AMB) | payer MEDICARE, MEDICAID, SELFPAY ==
--- NOTE | 2024-02-07 16:32 | A.OFFPC_ITS ---
Vital Signs 02/07/24 16:36 Height 5 ft 4 in Weight 179 lb 4 oz BMI 30.8 BP 114/68 Blood Pressure Location Lt brachial Position Sitting Pulse 84 Pulse Source Pulse Oximeter Pulse Oximetry (%) 92 Oxygen Delivery Method Room Air Intake Visit Reasons: 4 month f/u Intake Note: Patient is here to follow up on DM, BPH, HTN. Complaint of cold, chills, cough, dizziness, no body aches. Did not test for covid at home Hoist Operator Required: No Stamp Mounter: Not Required per policy Accompanied by: Self / Same As Patient Allergies nut - unspecified Allergy (Severe, Verified 02/07/24 17:05) Difficulty Breathing Medication List - Last Reconciled 02/07/24 by Nir Moreno MD blood sugar diagnostic (FreeStyle Lite Strips) As directed once a day cholecalciferol (vitamin D3) 50 mcg PO DAILY 90 days lancets (FreeStyle Lancets) 28 gauge topical DAILY metformin 500 mg PO DAILY 90 days metoprolol tartrate 50 mg PO BID 90 days simvastatin 20 mg PO BEDTIME 90 days Tobacco use date assessed: 02/07/24 Fall risk assessment: No Falls in past year Last assessed Fall Risk: 02/07/24 Dental Screening Dental Screen Date: 02/07/24 Did you have a dental visit in the last 12 months?: No Did you have a dental problem in the last 6 months where you did not have access to dental care?: No Was dental information given to patient?: No HPI 4 month f/u HPI Details Patient comes in today for his follow up visit States that he has increased cough and congestion for the past 3 days He has been coughing up thick yellowish phlegm lately and states that his cough is worse at night Relates on and off fever and sore throat; he denies any headaches or dizziness Denies any chest pains, no increased shortness of breath No nausea /vomiting, no abdominal pain No change in bowel habits noted Patient needs several of his Rx refilled Had his follow-up labs done yesterday - to discuss his results [facility] Medical History Obesity (BMI 30-39.9) Benign prostatic hyperplasia without lower urinary tract symptoms Allergic rhinitis Vitamin D deficiency Primary osteoarthritis of left knee Facet arthritis, degenerative, cervical spine Pure hypercholesterolemia Diabetes mellitus Hypertension Surgical History History of prostate biopsy (~2019) History of cervical spinal surgery Family History Father No problems noted. Mother No problems noted. Social History Housing: House Patient Tobacco Use Status: Never used Tobacco e-Cigarette/Vaping Use: Never Used Second Hand Smoke Exposure: Yes service: No Current occupational status: retired Cognitive needs: No Hearing needs: No Vision needs: Yes (Glasses) Questionnaire PHQ-9 Over the last 2 weeks, how often have you been bothered by any of the following problems? 1. Little interest or pleasure in doing things: not at all 2. Feeling down, depressed, or hopeless: not at all 3. Trouble falling or staying asleep, or sleeping too much: not at all 4. Feeling tired or having little energy: not at all 5. Poor appetite or overeating: not at all 6. Feeling bad about yourself - or that you are a failure or have let yourself or your family down: not at all 7. Trouble concentrating on things, such as reading the newspaper or watching television: not at all 8. Moving or speaking so slowly that other people could have noticed. Or the opposite - being so fidgety or restless that you have been moving around a lot more than usual: not at all 9. Thoughts that you would be better off or of hurting yourself in some way: not at all Total score: 0 Depression Screening Interpretation: Negative Depression Screening Done: Yes 59294 - PHQ-9 Billing: Yes Source: Developed by Drs. Sherman Morales, Kathrine Rolon, Maurilio Rodriguez and colleagues, with an educational mcai from [employer]. Thrive Questionnaire Date Thrive assessed: 02/07/24 I am a: Patient What is your living situation today?: I have a steady place to live Within the past 12 months, did the food you bought not last and you didn't have the money to get more?: Never true Within the past 12 months, did you worry whether your food would run out before you got money to buy more?: Never true Do you have trouble paying for medicines?: No Do you have trouble getting transportation to medical appointments?: No Do you have trouble paying your heating and electricity bill?: No Do you have trouble taking care of your child, family member or friend?: No Do you have trouble with day-to-day activities such as bathing, preparing meals, shopping, managing finances, etc.?: No Are you currently unemployed and looking for a job?: No Are you interested in more education?: No Currently or been in a relationship where the following occur: no concerns reported THRIVE Score: 0 AUDIT C Alcohol Use Questionnaire (AUDIT-C) 1. How often do you have a drink containing alcohol?: Never 3. How often do you have six or more drinks on one occasion?: Never Total Score: 0 Score Reviewed/Action Taken: Yes PILY-7 AMB Questionnaire PILY-7 Date PILY - 7 assessed: 02/07/24 Feeling nervous, anxious, or on edge: 0 = Not at all Not being able to stop or control worryin = Not at all Worrying too much about different things: 0 = Not at all Trouble relaxin = Not at all Being so restless that it is hard to sit still: 0 = Not at all Becoming easily annoyed or irritable: 0 = Not at all Feeling afraid as if something awful might happen: 0 = Not at all Total PILY-7 score (0-4 normal; 5-9 mild; 10-14 moderate; 15-21 severe): 0 Source: Developed by Drs. Sherman Morales, Kathrine Rolon, Maurilio Rodriguez and colleagues, with an educational maci from [employer]. Review of Systems Const Denies chills, Reports fatigue, Reports fever(s) (on and off) and Denies headache(s) ENT Denies dysphagia, Denies dizziness, Denies otalgia, Denies headache(s), Reports nasal congestion, Reports neck pain (recurrent - Ibuprofen PRN helps), Denies odynophagia and Reports sore throat Card Denies chest pain, Denies palpitations and Denies dyspnea Resp Reports chest congestion, Reports cough (recurrent, worse at night; coughs up thick yellowish phlegm), Denies dyspnea and Denies wheezing GI Denies abdominal pain, Denies constipation, Denies dysphagia, Denies heartburn, Denies diarrhea, Denies nausea, Denies odynophagia and Denies vomiting Denies dysuria, Denies nocturia and Denies urinary frequency Musc Reports arthralgias (left knee, on and off) and Reports neck pain (recurrent - Ibuprofen PRN helps) Skin/Breast Denies rash Neuro Denies dizziness and Denies headache(s) Endo Reports fatigue and Denies palpitations Aller/Immun Denies wheezing Physical exam (Primary Care) Vital Signs: Last Vital Signs Pulse 84 02/07/24 16:36 BP 114/68 02/07/24 16:36 Pulse Ox 92 02/07/24 16:36 Oxygen Delivery Method Room Air 02/07/24 16:36 BMI result Body Mass Index 30.8 Tobacco/Smoking Status: Tobacco use Status Tobacco use date assessed 02/07/24 02/07/24 16:42 Patient Tobacco Use Status Never used Tobacco 02/07/24 16:42 e-Cigarette/Vaping Use Never Used 02/07/24 16:42 PHQ-9: PHQ-9 Score PHQ-9: Total score 0 02/07/24 17:07 Depression Screening Interpretation: Negative Thrive Assessment: Date of Thrive Assessment Date Thrive assessed 02/07/24 02/07/24 16:42 Currently or been in a relationship where the following occur: no concerns reported Const General: no acute distress and alert HENMT Ears: TM's normal bilaterally and EAC's normal Throat: Yes tonsils normal (no TP congestion) and Yes posterior oropharynx abnormal ((+) erythema of the posterior pharynx) Neck Neck: Yes no lymphadenopathy Resp Auscultation: no rales, rhonchi (scattered) throughout, no wheezes, diminished lung sounds bilateral and bronchial breath sounds bilateral Cardio Rate: regular rate Rhythm: regular rhythm Heart sounds: no murmurs GI Palpation (GI): Soft to palpation and nontender Auscultation: normal bowel sounds General: Yes no CVA tenderness Back/Spine/Pelvis Back: no CVA tenderness Cervical Spine: Cervical spine tenderness Thoracic/Lumbar Spine: lumbar spinal tenderness Skin Rashes: no rashes Extrem General: Yes no clubbing, cyanosis or edema Left lower extremity: knee Details: tenderness Results Reviewed Results Reviewed: Laboratory Tests 02/06/24 02/06/24 07:51 07:56 WBC 5.8 Hgb 13.4 L Hct 39.8 L Plt Count 201 Sodium 136 Potassium 3.8 Creatinine 1.29 Estimated GFR 55 Fasting Glucose 167 H Hemoglobin A1c % 7.6 H Calcium 8.7 D AST 44 H ALT 51 H Triglycerides 76 Cholesterol 131 LDL Cholesterol, Calc 72 HDL Cholesterol 44 25-OH Vitamin D Total 31.9 TSH 0.33 Ur Specific [place] >= 1.030 H Urine Protein 30 (1+) H Urine Glucose (UA) Negative Urine Blood Negative Urine Nitrite Negative Ur Leukocyte Esterase Negative Microalb/Creat Ratio 20.1 Assessment and Plan Assessment & Plan (1) Bronchitis: Code(s): J40 - Bronchitis, not specified as acute or chronic Plan: Will start patient on Augmentin 875 mg BID x 7 days (2) Anemia: Code(s): D64.9 - Anemia, unspecified Qualifiers: Anemia type: unspecified type Qualified Code(s): D64.9 - Anemia, unspecified Plan: Patient is advised that he remains slightly anemic on his recent labs although his H/H have been stable Will include some anemia work ups with his next follow up labs for further evaluation Will continue to monitor his CBC regularly for now (3) Diabetes mellitus: Code(s): E11.9 - Type 2 diabetes mellitus without complications Qualifiers: Diabetes mellitus complication status: without complication 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 intermediate 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 Diabetes mellitus type: type 2 Qualified Code(s): E11.9 - Type 2 diabetes mellitus without complications Plan: His HgbA1c is at 7.6% on his labs done yesterday (HgbA1c was at 7.5% a few months ago) - goal is <7.0% Reinforced diabetic diet Continue Metformin 500 mg QD for now but advised that if his glycemic control does not improve significantly at his next visit, then we will likely need to increase his Metformin to BID dosing (4) Hypertension: Code(s): I10 - Essential (primary) hypertension Qualifiers: Hypertension type: primary hypertension Qualified Code(s): I10 - Essential (primary) hypertension Plan: Reinforced low sodium diet - goal is systolic BP of 120 to 130 mm or less Continue Metoprolol tartrate 50 mg BID (5) Pure hypercholesterolemia: Code(s): E78.00 - Pure hypercholesterolemia, unspecified Plan: Results of his labs done yesterday reviewed and discussed with patient - advised that his cholesterol levels have all improved from previous Reinforced low cholesterol diet Continue Simvastatin 20 mg Q HS Will recheck his labs and fasting lipids in 4 months for follow up (6) Facet arthritis, degenerative, cervical spine: Comment: S/P ACDF and posterior spinal fusion a few years ago - injury due to fall at [employer] in 2012 Code(s): M47.812 - Spondylosis without myelopathy or radiculopathy, cervical region Plan: Cerivcal spine x-rays done a couple of years ago showed (+) bony foraminal inpingement at C6-C6 bilaterally States that he has been able to manage his neck pains adequately - takes some OTC Ibuprofen when needed with (+) relief (7) Primary osteoarthritis of left knee: Code(s): M17.12 - Unilateral primary osteoarthritis, left knee Plan: Left knee x-rays last done back in October 2017 showed (+) minimal medial compartment narrowing Will consider orthopedics referral if his knee symptoms progress or get worse (8) Vitamin D deficiency: Code(s): E55.9 - Vitamin D deficiency, unspecified Plan: Corrected on his recent labs Continue Vitamin D3 2000 units QD (9) Allergic rhinitis: Code(s): J30.9 - Allergic rhinitis, unspecified Qualifiers: Allergic rhinitis seasonality: unspecified Allergic rhinitis trigger: unspecified Qualified Code(s): J30.9 - Allergic rhinitis, unspecified Plan: Continue OTC Loratadine 10 mg QD PRN (10) Benign prostatic hyperplasia without lower urinary tract symptoms: Comment: S/P US-guided biopsy in 2019 - benign Code(s): N40.0 - Benign prostatic hyperplasia without lower urinary tract symptoms Plan: Patient was on Finasteride 5 mg QD in the past but he appears to have stopped taking this at some point - is not sure when although he states that he's had no acute urinary issues so far Follow up with urology as scheduled (11) Obesity (BMI 30-39.9): Code(s): E66.9 - Obesity, unspecified Plan: Reinforced diet/exercise as tolerated/lose weight Plan Follow up in 4 months Orders: Orders Complete Blood Count Auto Diff 4 Months D64.9 - Anemia, unspecified Lipid Panel 4 Months E78.00 - Pure hypercholesterolemia, unspecified Microalbumin, Random (w Creat) 4 Months E11.9 - Type 2 diabetes mellitus without complications IRON PROFILE 4 Months D50.9 - Iron deficiency anemia, unspecified Comprehensive [place]. Panel Fast 4 Months E78.00 - Pure hypercholesterolemia, unspecified TSH reflex Free T4 4 Months E78.00 - Pure hypercholesterolemia, unspecified UA CC w/rflx Micro + Cult 4 Months R30.0 - Dysuria Vitamin D 25-OH Total 4 Months E55.9 - Vitamin D deficiency, unspecified Vitamin B12 and Folate 4 Months E53.8 - Deficiency of other specified B group vitamins Hemoglobin A1c 4 Months E11.9 - Type 2 diabetes mellitus without complications Medications: New amoxicillin-pot clavulanate 875-125 mg 1 tab PO BID 7 days 14 tabs 0RF Refilled lancets (FreeStyle Lancets) test blood sugar as directed once a day 28 gauge topical DAILY 100 ea 11RF E11.9 - Type 2 diabetes mellitus without complications blood sugar diagnostic (FreeStyle Lite Strips) As directed once a day 100 ea 11RF E11.9 - Type 2 diabetes mellitus without complications simvastatin 20 mg PO BEDTIME 90 days 90 tabs 1RF metoprolol tartrate 50 mg PO BID 90 days 180 tabs 1RF I10 - Essential (primary) hypertension metformin 500 mg PO DAILY 90 days 90 tabs 1RF E11.9 - Type 2 diabetes mellitus without complications cholecalciferol (vitamin D3) 50 mcg PO DAILY 90 days 90 caps 3RF E55.9 - Vitamin D deficiency, unspecified Coding Level of Care Code Est Pt Level 4 (69800) Diagnoses Bronchitis J40 Anemia, unspecified type D64.9 Anemia type: unspecified type Type 2 diabetes mellitus without complication, without long-term current use of insulin E11.9 Diabetes mellitus complication status: without complication Diabetes mellitus intermediate insulin use: without intermediate use Diabetes mellitus type: type 2 Primary hypertension I10 Hypertension type: primary hypertension Pure hypercholesterolemia E78.00 Facet arthritis, degenerative, cervical spine M47.812 Primary osteoarthritis of left knee M17.12 Vitamin D deficiency E55.9 Allergic rhinitis, unspecified seasonality, unspecified trigger J30.9 Allergic rhinitis seasonality: unspecified Allergic rhinitis trigger: unspecified Benign prostatic hyperplasia without lower urinary tract symptoms N40.0 Obesity (BMI 30-39.9) E66.9
[2024-02-07 16:36] VITALS: BP 114/68; PULSE 84; O2SAT 92; BMI 30.8
== END 2024-02-07 17:13 | disposition home or self-care (01) ==
PROVIDERS: PCP Internal Medicine; Visit Provider Internal Medicine
DX: J40 Bronchitis, not specified as acute or chronic (principal); E11.9 Type 2 diabetes mellitus without complications; D64.9 Anemia, unspecified; I10 Essential (primary) hypertension; E66.9 Obesity, unspecified; Z68.30 Body mass index [BMI] 30.0-30.9, adult; E78.00 Pure hypercholesterolemia, unspecified; M47.812 Spondylosis without myelopathy or radiculopathy, cervical region; M17.12 Unilateral primary osteoarthritis, left knee; E55.9 Vitamin D deficiency, unspecified; J30.9 Allergic rhinitis, unspecified; N40.0 Benign prostatic hyperplasia without lower urinary tract symptoms
CPT/HCPCS: 99214

== ENCOUNTER 2024-06-21 06:53 | Outpatient (REF) | payer MEDICARE, MEDICAID, SELFPAY ==
[2024-06-21 07:14] LABS: MANUAL DIFF FLAG NO
[2024-06-21 07:47] LABS: Basophils Percent Auto 0.5 % (0-2); Eosinophils Absolute Auto 0.4 X10*3/uL (0.0-0.4); Eosinophils Percent Auto 5.6 % (0-4); Hematocrit 42.1 % (42.0-52.0); Hemoglobin 13.9 g/dl (14.0-18.0); Imm Gran Abs Auto 0.01 X10*3/uL (0.00-0.03); Imm Gran Pct Auto 0.1 % (0.0-0.4); Lymphocytes Absolute Auto 2.5 X10*3/uL (1.2-4.9); Lymphocytes Percent Auto 34.2 % (20-40); Mean Corpuscular Hemoglobin 25.8 pg (27.0-33.0); Mean Corpuscular Volume 78.3 fL (80.0-98.0); Mean Platelet Volume 9.8 fL (9.4-12.4); Monocytes Absolute Auto 0.4 X10*3/uL (0.1-1.2); Monocytes Percent Auto 5.8 % (2-11); Neutrophils Absolute Auto 3.9 x10*3/uL (2.0-8.3); Neutrophils Percent Auto 53.8 % (45-73); Platelet Count 242 X10*3/uL (160-400); Red Blood Count 5.38 X10*6/uL (4.60-5.80); Red Cell Distribution Width 14.6 % (11.0-16.0); White Blood Count 7.3 X10*3/uL (4.8-10.8)
[2024-06-21 07:49] LABS: Appearance Urine Clear; Color Urine Yellow; Glucose Urine UA Negative (Negative); Leukocyte Esterase Urine Negative (Negative); Nitrite Urine Negative (Negative); Urine Blood Negative (Negative); Urine Ketones Negative (Negative); Urine Protein Negative (Neg-Trace)
[2024-06-21 07:55] LABS: Estimated Average Glucose 154 mg/dL
[2024-06-21 08:27] LABS: Creatinine Urine 120.31 mg/dL; Microalbum/Creatinine Ratio Ur 4.1 ug/mg cr (<30)
[2024-06-21 08:29] LABS: Alanine Aminotransferase 26 U/L (0-40); Albumin Level 4.1 g/dL (3.5-5.0); Alkaline Phosphatase 69 U/L (39-117); Anion Gap 10 (12-20); Aspartate Amino Transferase 17 U/L (5-37); Bilirubin Total 0.6 mg/dL (0.0-1.0); Blood Urea Nitrogen 15 mg/dL (9-16); Calcium 9.5 mg/dL (8.4-10.2); Carbon Dioxide 28 mmol/L (22-29); Chloride 107 mmol/L (96-108); Cholesterol 157 mg/dL (<200); Estimated Glomerular Filt Rate > 60; Glucose Fasting 146 mg/dL (60-99); HDL Cholesterol 38 mg/dL (>40); Iron 75 mcg/dL (45-160); LDL Cholesterol Calculated 90 mg/dL (<100); Percent Iron Saturation 29 % (15-50); Potassium 3.9 mmol/L (3.3-5.1); Sodium 141 mmol/L (135-145); Total Iron Binding Capacity 259 mcg/dL (228-428); Total Protein 7.6 g/dL (6.5-8.0); Triglycerides 149 mg/dL (<150); Unsaturated Iron Binding 184 ug/dL
[2024-06-21 08:49] LABS: TSH reflex Free T4 0.88 uIU/mL (0.32-4.0); Vitamin D 25-OH Total 36.3 ng/mL (>30)
[2024-06-21 08:51] LABS: Vitamin B12 496 pg/mL (200-900)
== END 2024-06-21 06:54 | disposition home or self-care (01) ==
LOC: HO.LAB 06:53
PROVIDERS: PCP Internal Medicine; Visit Provider Internal Medicine
DX: D64.9 Anemia, unspecified (principal); E55.9 Vitamin D deficiency, unspecified; E11.9 Type 2 diabetes mellitus without complications; E78.00 Pure hypercholesterolemia, unspecified; D50.9 Iron deficiency anemia, unspecified; R30.0 Dysuria; E53.8 Deficiency of other specified B group vitamins
CPT/HCPCS: 36415; 80053; 80061; 81003; 82043; 82306; 82570; 82607; 82746; 83036; 83540; 84443; 85025

== ENCOUNTER 2024-06-22 15:58 | Outpatient (AMB) | payer MEDICARE, MEDICAID, SELFPAY ==
[2024-06-22 16:10] VITALS: BP 138/84; PULSE 72; O2SAT 94; BMI 30.4
--- NOTE | 2024-06-22 16:10 | MHC.PC.OV ---
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 Required: No Accompanied by: Self / Same As Patient Allergies nut - unspecified Allergy (Severe, Verified 06/22/24 16:38) Difficulty Breathing Medication List - Last Reconciled 06/22/24 by Nir Moreno MD blood sugar diagnostic (FreeStyle Lite Strips) As directed once a day cholecalciferol (vitamin D3) 50 mcg PO DAILY 90 days lancets (FreeStyle Lancets) 28 gauge topical DAILY metformin 500 mg PO DAILY 90 days metoprolol tartrate 50 mg PO BID 90 days simvastatin 20 mg PO BEDTIME 90 days Tobacco use date assessed: 06/22/24 Fall risk assessment: 1 Fall in past year Last assessed Fall Risk: 06/22/24 Dental Screening Dental Screen Date: 06/22/24 Did you have a dental visit in the last 12 months?: No Did you have a dental problem in the last 6 months where you did not have access to dental care?: No Was dental information given to patient?: No HPI 4 month f/u HPI Details Patient comes in today for his follow up visit States that he feels okay He denies any headaches or dizziness Denies any chest pains, no increased shortness of breath No nausea /vomiting, no abdominal pain No change in bowel habits noted He had his follow-up labs done yesterday - to discuss his results [facility] Medical History Obesity (BMI 30-39.9) Benign prostatic hyperplasia without lower urinary tract symptoms Allergic rhinitis Vitamin D deficiency Primary osteoarthritis of left knee Facet arthritis, degenerative, cervical spine Pure hypercholesterolemia Diabetes mellitus Hypertension Surgical History History of prostate biopsy (~2019) History of cervical spinal surgery Family History Father No problems noted. Mother No problems noted. Social History Housing: House Patient Tobacco Use Status: Never used Tobacco e-Cigarette/Vaping Use: Never Used Second Hand Smoke Exposure: Yes service: No Current occupational status: retired Cognitive needs: No Hearing needs: No Vision needs: Yes (Glasses) Questionnaire PHQ-9 Over the last 2 weeks, how often have you been bothered by any of the following problems? 1. Little interest or pleasure in doing things: not at all 2. Feeling down, depressed, or hopeless: not at all 3. Trouble falling or staying asleep, or sleeping too much: not at all 4. Feeling tired or having little energy: not at all 5. Poor appetite or overeating: not at all 6. Feeling bad about yourself - or that you are a failure or have let yourself or your family down: not at all 7. Trouble concentrating on things, such as reading the newspaper or watching television: not at all 8. Moving or speaking so slowly that other people could have noticed. Or the opposite - being so fidgety or restless that you have been moving around a lot more than usual: not at all 9. Thoughts that you would be better off or of hurting yourself in some way: not at all Total score: 0 Depression Screening Interpretation: Negative Depression Screening Done: Yes 29679 - PHQ-9 Billing: Yes Source: Developed by Drs. Sherman Morales, Kathrine Rolon, Maurilio Rodriguez and colleagues, with an educational maci from [employer]. Thrive Questionnaire Date Thrive assessed: 06/22/24 I am a: Patient What is your living situation today?: I have a steady place to live Within the past 12 months, did the food you bought not last and you didn't have the money to get more?: Never true Within the past 12 months, did you worry whether your food would run out before you got money to buy more?: Never true Do you have trouble paying for medicines?: No Do you have trouble getting transportation to medical appointments?: No Do you have trouble paying your heating and electricity bill?: No Do you have trouble taking care of your child, family member or friend?: No Do you have trouble with day-to-day activities such as bathing, preparing meals, shopping, managing finances, etc.?: No Are you currently unemployed and looking for a job?: No Are you interested in more education?: No Please select the resources that you would like help with: None Currently or been in a relationship where the following occur: No concerns reported THRIVE Score: 0 AUDIT C Alcohol Use Questionnaire (AUDIT-C) 1. How often do you have a drink containing alcohol?: Never 3. How often do you have six or more drinks on one occasion?: Never Total Score: 0 Score Reviewed/Action Taken: Yes PILY-7 AMB Questionnaire PILY-7 Date PILY - 7 assessed: 06/22/24 Feeling nervous, anxious, or on edge: 0 = Not at all Not being able to stop or control worryin = Not at all Worrying too much about different things: 0 = Not at all Trouble relaxin = Not at all Being so restless that it is hard to sit still: 0 = Not at all Becoming easily annoyed or irritable: 0 = Not at all Feeling afraid as if something awful might happen: 0 = Not at all Total PILY-7 score (0-4 normal; 5-9 mild; 10-14 moderate; 15-21 severe): 0 Source: Developed by Drs. Sherman Morales, Kathrine Rolon, Maurilio Rodriguez and colleagues, with an educational maci from [employer]. Review of Systems Const Denies chills, Denies fatigue, Denies fever(s) and Denies headache(s) ENT Denies dysphagia, Denies dizziness, Denies otalgia, Denies headache(s), Denies nasal congestion, Reports neck pain (recurrent - Ibuprofen PRN helps), Denies odynophagia and Denies sore throat Card Denies chest pain, Denies palpitations and Denies dyspnea Resp Denies chest congestion, Denies cough, Denies dyspnea and Denies wheezing GI Denies abdominal pain, Denies constipation, Denies dysphagia, Denies heartburn, Denies diarrhea, Denies nausea, Denies odynophagia and Denies vomiting Denies dysuria, Denies nocturia and Denies urinary frequency Musc Reports back pain (occasionally), Reports arthralgias (left knee, on and off) and Reports neck pain (recurrent - Ibuprofen PRN helps) Skin/Breast Denies rash Neuro Denies dizziness and Denies headache(s) Endo Denies fatigue and Denies palpitations Aller/Immun Denies wheezing Physical exam (Primary Care) Vital Signs: Last Vital Signs Pulse 72 06/22/24 16:10 BP 138/84 06/22/24 16:10 Pulse Ox 94 06/22/24 16:10 Oxygen Delivery Method Room Air 06/22/24 16:10 BMI result Body Mass Index 30.4 Tobacco/Smoking Status: Tobacco use Status Tobacco use date assessed 06/22/24 06/22/24 16:18 Patient Tobacco Use Status Never used Tobacco 06/22/24 16:18 e-Cigarette/Vaping Use Never Used 06/22/24 16:18 PHQ-9: PHQ-9 Score PHQ-9: Total score 0 06/22/24 16:38 Depression Screening Interpretation: Negative Thrive Assessment: Date of Thrive Assessment Date Thrive assessed 06/22/24 06/22/24 16:18 Currently or been in a relationship where the following occur: No concerns reported Const General: no acute distress and alert HENMT Ears: TM's normal bilaterally and EAC's normal Throat: Yes posterior oropharynx normal and Yes tonsils normal (no TP congestion) Neck Neck: Yes no lymphadenopathy and Yes tender Thyroid: Thyroid normal Resp Auscultation: clear to auscultation bilaterally, no crackles, no rales and no wheezes Cardio Rate: regular rate Rhythm: regular rhythm Heart sounds: no murmurs GI Palpation (GI): Soft to palpation and nontender Auscultation: normal bowel sounds General: Yes no CVA tenderness Back/Spine/Pelvis Back: no CVA tenderness Cervical Spine: Cervical spine tenderness Thoracic/Lumbar Spine: lumbar spinal tenderness Skin Rashes: no rashes Extrem General: Yes no clubbing, cyanosis or edema Left lower extremity: knee Details: tenderness Results Reviewed Results Reviewed: Laboratory Tests 06/21/24 06/21/24 07:02 07:12 WBC 7.3 Hgb 13.9 L Hct 42.1 Plt Count 242 Sodium 141 Potassium 3.9 Creatinine 1.14 Estimated GFR > 60 Fasting Glucose 146 H Hemoglobin A1c % 7.0 H Calcium 9.5 D AST 17 ALT 26 Triglycerides 149 Cholesterol 157 LDL Cholesterol, Calc 90 HDL Cholesterol 38 L Vitamin B12 496 25-OH Vitamin D Total 36.3 TSH 0.88 Ur Specific [place] 1.020 Urine Protein Negative Urine Glucose (UA) Negative Urine Blood Negative Urine Nitrite Negative Ur Leukocyte Esterase Negative Microalb/Creat Ratio 4.1 Assessment and Plan Assessment & Plan (1) Diabetes mellitus: Code(s): E11.9 - Type 2 diabetes mellitus without complications Qualifiers: Diabetes mellitus complication status: without complication Diabetes mellitus detention insulin use: without predatory animal exterminator use Diabetes mellitus type: type 2 Qualified Code(s): E11.9 - Type 2 diabetes mellitus without complications Plan: His HgbA1c was at 7.0% on his labs done yesterday (was at 7.6% a few months ago) - goal is <7.0% Reinforced diabetic diet Continue Metformin 500 mg QD (2) Hypertension: Code(s): I10 - Essential (primary) hypertension Qualifiers: Hypertension type: primary hypertension Qualified Code(s): I10 - Essential (primary) hypertension Plan: Reinforced low sodium diet - goal is systolic BP of 120 to 130 mm or less Continue Metoprolol tartrate 50 mg BID (3) Pure hypercholesterolemia: Code(s): E78.00 - Pure hypercholesterolemia, unspecified Plan: Results of his labs done yesterday reviewed and discussed with patient - advised that his cholesterol levels have all increased from previous Patient states that he was on vacation recently and was not fully compliant with his diet while he was on vacation Reinforced low cholesterol diet Continue Simvastatin 20 mg Q HS Will recheck his labs and fasting lipids in 4 months for follow up (4) Anemia: Code(s): D64.9 - Anemia, unspecified Qualifiers: Anemia type: unspecified type Qualified Code(s): D64.9 - Anemia, unspecified Plan: Patient remains slightly anemic on his recent labs although his H/H have been stable for a while now His iron profile as well as his B12 and folate levels were also normal on his recent labs Will continue to monitor his CBC regularly (5) Facet arthritis, degenerative, cervical spine: Comment: S/P ACDF and posterior spinal fusion a few years ago - injury due to fall at [employer] in 2012 Code(s): M47.812 - Spondylosis without myelopathy or radiculopathy, cervical region Plan: Cerivcal spine x-rays done a couple of years ago showed (+) bony foraminal inpingement at C6-C6 bilaterally States that he has been able to manage his neck pains adequately - takes some OTC Ibuprofen when needed with (+) relief (6) Primary osteoarthritis of left knee: Code(s): M17.12 - Unilateral primary osteoarthritis, left knee Plan: Left knee x-rays last done back in October 2017 showed (+) minimal medial compartment narrowing Will consider orthopedics referral if his knee symptoms progress or get worse (7) Vitamin D deficiency: Code(s): E55.9 - Vitamin D deficiency, unspecified Plan: Continue Vitamin D3 2000 units QD (8) Allergic rhinitis: Code(s): J30.9 - Allergic rhinitis, unspecified Qualifiers: Allergic rhinitis seasonality: unspecified Allergic rhinitis trigger: unspecified Qualified Code(s): J30.9 - Allergic rhinitis, unspecified Plan: Continue OTC Loratadine 10 mg QD PRN (9) Benign prostatic hyperplasia without lower urinary tract symptoms: Comment: S/P US-guided biopsy in 2019 - benign Code(s): N40.0 - Benign prostatic hyperplasia without lower urinary tract symptoms Plan: Patient was on Finasteride 5 mg QD in the past but he appears to have stopped taking this at some point - is not sure when although he states that he's had no acute urinary issues so far Follow up with urology as scheduled (10) Obesity (BMI 30-39.9): Code(s): E66.9 - Obesity, unspecified Plan: Reinforced diet/exercise as tolerated/lose weight Plan Follow up in 4 months Orders: Orders Complete Blood Count Auto Diff 4 Months D64.9 - Anemia, unspecified Comprehensive [place]. Panel Fast 4 Months E78.00 - Pure hypercholesterolemia, unspecified Vitamin D 25-OH Total 4 Months E55.9 - Vitamin D deficiency, unspecified Lipid Panel 4 Months E78.00 - Pure hypercholesterolemia, unspecified Hemoglobin A1c 4 Months E11.9 - Type 2 diabetes mellitus without complications Microalbumin, Random (w Creat) 4 Months E11.9 - Type 2 diabetes mellitus without complications UA CC w/rflx Micro + Cult 4 Months R30.0 - Dysuria TSH reflex Free T4 4 Months E78.00 - Pure hypercholesterolemia, unspecified Coding Level of Care Code Est Pt Level 4 (81055) Complex EM visit Add On G2211 Diagnoses Type 2 diabetes mellitus without complication, without long-term current use of insulin E11.9 Diabetes mellitus complication status: without complication Diabetes mellitus detention insulin use: without predatory animal exterminator use Diabetes mellitus type: type 2 Primary hypertension I10 Hypertension type: primary hypertension Pure hypercholesterolemia E78.00 Anemia, unspecified type D64.9 Anemia type: unspecified type Facet arthritis, degenerative, cervical spine M47.812 Primary osteoarthritis of left knee M17.12 Vitamin D deficiency E55.9 Allergic rhinitis, unspecified seasonality, unspecified trigger J30.9 Allergic rhinitis seasonality: unspecified Allergic rhinitis trigger: unspecified Benign prostatic hyperplasia without lower urinary tract symptoms N40.0 Obesity (BMI 30-39.9) E66.9
== END 2024-06-22 16:46 | disposition home or self-care (01) ==
PROVIDERS: PCP Internal Medicine; Visit Provider Internal Medicine
DX: E11.9 Type 2 diabetes mellitus without complications (principal); I10 Essential (primary) hypertension; E66.9 Obesity, unspecified; Z68.30 Body mass index [BMI] 30.0-30.9, adult; E78.00 Pure hypercholesterolemia, unspecified; D64.9 Anemia, unspecified; M47.812 Spondylosis without myelopathy or radiculopathy, cervical region; M17.12 Unilateral primary osteoarthritis, left knee; E55.9 Vitamin D deficiency, unspecified; J30.9 Allergic rhinitis, unspecified; N40.0 Benign prostatic hyperplasia without lower urinary tract symptoms
CPT/HCPCS: 99214; G2211

== ENCOUNTER 2024-11-22 07:42 | Outpatient (REF) | payer MEDICARE, MEDICAID, SELFPAY ==
[2024-11-22 07:56] LABS: MANUAL DIFF FLAG NO
[2024-11-22 08:34] LABS: Appearance Urine Clear; Color Urine Yellow; Glucose Urine UA Negative (Negative); Leukocyte Esterase Urine Negative (Negative); Nitrite Urine Negative (Negative); Specific Gravity - Urine 1.015 (1.005-1.025); Urine Blood Negative (Negative); Urine Ketones Negative (Negative); Urine Protein Negative (Neg-Trace)
[2024-11-22 08:38] LABS: Basophils Absolute Auto 0.1 X10*3/uL (0.0-0.2); Basophils Percent Auto 0.9 % (0-2); Eosinophils Absolute Auto 0.4 X10*3/uL (0.0-0.4); Eosinophils Percent Auto 4.8 % (0-4); Hemoglobin 13.8 g/dl (14.0-18.0); Imm Gran Abs Auto 0.01 X10*3/uL (0.00-0.03); Imm Gran Pct Auto 0.1 % (0.0-0.4); Lymphocytes Absolute Auto 2.8 X10*3/uL (1.2-4.9); Lymphocytes Percent Auto 36.8 % (20-40); Mean Corpuscular HGB Conc 32.9 g/dl (31.0-36.0); Mean Corpuscular Hemoglobin 25.8 pg (27.0-33.0); Mean Corpuscular Volume 78.5 fL (80.0-98.0); Monocytes Absolute Auto 0.5 X10*3/uL (0.1-1.2); Monocytes Percent Auto 6.7 % (2-11); Neutrophils Absolute Auto 3.9 x10*3/uL (2.0-8.3); Neutrophils Percent Auto 50.7 % (45-73); Platelet Count 249 X10*3/uL (160-400); Red Blood Count 5.35 X10*6/uL (4.60-5.80); Red Cell Distribution Width 14.8 % (11.0-16.0); White Blood Count 7.6 X10*3/uL (4.8-10.8)
[2024-11-22 09:07] LABS: Creatinine Urine 131.75 mg/dL; Microalbum/Creatinine Ratio Ur 3.7 ug/mg cr (<30)
[2024-11-22 09:19] LABS: Alanine Aminotransferase 32 U/L (0-40); Albumin Level 4.1 g/dL (3.5-5.0); Alkaline Phosphatase 61 U/L (39-117); Anion Gap 12 (12-20); Aspartate Amino Transferase 22 U/L (5-37); Bilirubin Total 0.6 mg/dL (0.0-1.0); Blood Urea Nitrogen 13 mg/dL (9-16); Calcium 9.3 mg/dL (8.4-10.2); Carbon Dioxide 28 mmol/L (22-29); Chloride 105 mmol/L (96-108); Cholesterol 172 mg/dL (<200); Estimated Glomerular Filt Rate > 60; Glucose Fasting 143 mg/dL (60-99); HDL Cholesterol 43 mg/dL (>40); LDL Cholesterol Calculated 93 mg/dL (<100); Potassium 3.9 mmol/L (3.3-5.1); Sodium 141 mmol/L (135-145); Total Protein 8.1 g/dL (6.5-8.0); Triglycerides 181 mg/dL (<150)
[2024-11-22 09:24] LABS: Estimated Average Glucose 160 mg/dL; Hemoglobin A1C 199.8818 umol/L; Hemoglobin A1c % 7.2 % (<6.0); Total Hemoglobin (HGBA1C) 3612.9411 umol/L
[2024-11-22 09:37] LABS: TSH reflex Free T4 1.17 uIU/mL (0.32-4.0); Vitamin D 25-OH Total 72.2 ng/mL (>30)
== END 2024-11-22 07:43 | disposition home or self-care (01) ==
LOC: HO.LAB 07:42
PROVIDERS: Visit Provider Internal Medicine
DX: D64.9 Anemia, unspecified (principal); E78.00 Pure hypercholesterolemia, unspecified; E55.9 Vitamin D deficiency, unspecified; E11.9 Type 2 diabetes mellitus without complications; R30.0 Dysuria
CPT/HCPCS: 36415; 80053; 80061; 81003; 82043; 82306; 82570; 83036; 84443; 85025

== ENCOUNTER 2024-11-23 16:24 | Outpatient (AMB) | payer MEDICARE, MEDICAID, SELFPAY ==
[2024-11-23 16:26] VITALS: BP 136/84; PULSE 100; O2SAT 94; BMI 31.2
--- NOTE | 2024-11-23 16:26 | MHC.PC.OV ---
Vital Signs 11/23/24 16:26 Height 5 ft 4 in Weight 182 lb BMI 31.2 BP 136/84 Blood Pressure Location Lt brachial Position Sitting Pulse 100 Pulse Source Pulse Oximeter Pulse Oximetry (%) 94 Oxygen Delivery Method Room Air Intake Visit Reasons: 4 month f/u Vp Global Required: No Accompanied by: Self / Same As Patient Allergies nut - unspecified Allergy (Severe, Verified 11/23/24 16:53) Difficulty Breathing Medication List - Last Reconciled 11/23/24 by Nir Moreno MD blood sugar diagnostic (FreeStyle Lite Strips) As directed once a day cholecalciferol (vitamin D3) 50 mcg PO DAILY 90 days lancets (FreeStyle Lancets) 28 gauge topical DAILY metformin 500 mg PO DAILY 90 days metoprolol tartrate 50 mg PO BID 90 days simvastatin 20 mg PO BEDTIME 90 days Tobacco use date assessed: 11/23/24 Fall risk assessment: No Falls in past year Last assessed Fall Risk: 11/23/24 Dental Screening Dental Screen Date: 11/23/24 Did you have a dental visit in the last 12 months?: No Did you have a dental problem in the last 6 months where you did not have access to dental care?: No Was dental information given to patient?: No HPI 4 month f/u HPI Details Patient comes in today for his follow up visit States that he feels okay Relates that he had increased cough and congestion for a while but his respiratory symptoms are now all cleared up He denies any headaches or dizziness Denies any SOB or exertional chest pains but relates (+) on and off sharp pains over his right side (right anterolateral chest wall) for the past 2 to 3 weeks now Notes that the pain here is increased with activity or exertion or when he coughs or takes deep breaths No nausea/vomiting, no abdominal pain No change in bowel habits noted Needs his glucometer test strips and lancets Rx refilled He had his follow up labs done yesterday - to discuss his results [facility] Medical History (Updated 11/23/24 @ 18:20 by Nir Moreno MD) Essential hypertension Obesity (BMI 30-39.9) Benign prostatic hyperplasia without lower urinary tract symptoms Allergic rhinitis Vitamin D deficiency Primary osteoarthritis of left knee Facet arthritis, degenerative, cervical spine Pure hypercholesterolemia Diabetes mellitus Surgical History History of prostate biopsy (~2019) History of cervical spinal surgery Family History Father No problems noted. Mother No problems noted. Social History Housing: House Patient Tobacco Use Status: Never used Tobacco e-Cigarette/Vaping Use: Never Used Second Hand Smoke Exposure: Yes service: No Current occupational status: retired Cognitive needs: No Hearing needs: No Vision needs: Yes (Glasses) Questionnaire PHQ-9 Over the last 2 weeks, how often have you been bothered by any of the following problems? 1. Little interest or pleasure in doing things: not at all 2. Feeling down, depressed, or hopeless: not at all 3. Trouble falling or staying asleep, or sleeping too much: not at all 4. Feeling tired or having little energy: not at all 5. Poor appetite or overeating: not at all 6. Feeling bad about yourself - or that you are a failure or have let yourself or your family down: not at all 7. Trouble concentrating on things, such as reading the newspaper or watching television: not at all 8. Moving or speaking so slowly that other people could have noticed. Or the opposite - being so fidgety or restless that you have been moving around a lot more than usual: not at all 9. Thoughts that you would be better off or of hurting yourself in some way: not at all Total score: 0 Depression Screening Interpretation: Negative Depression Screening Done: Yes 03878 - PHQ-9 Billing: Yes Source: Developed by Drs. Sherman Morales, Kathrine Rolon, Maurilio Rodriguez and colleagues, with an educational maci from [employer]. Thrive Questionnaire Date Thrive assessed: 11/23/24 I am a: Patient What is your living situation today?: I have a steady place to live Within the past 12 months, did the food you bought not last and you didn't have the money to get more?: Never true Within the past 12 months, did you worry whether your food would run out before you got money to buy more?: Never true Do you have trouble paying for medicines?: No Do you have trouble getting transportation to medical appointments?: No Do you have trouble paying your heating and electricity bill?: No Do you have trouble taking care of your child, family member or friend?: No Do you have trouble with day-to-day activities such as bathing, preparing meals, shopping, managing finances, etc.?: No Are you currently unemployed and looking for a job?: No Are you interested in more education?: No Please select the resources that you would like help with: None Currently or been in a relationship where the following occur: No concerns reported THRIVE Score: 0 AUDIT C Alcohol Use Questionnaire (AUDIT-C) 1. How often do you have a drink containing alcohol?: Never 3. How often do you have six or more drinks on one occasion?: Never Total Score: 0 Score Reviewed/Action Taken: Yes PILY-7 AMB Questionnaire PILY-7 Date PILY - 7 assessed: 11/23/24 Feeling nervous, anxious, or on edge: 0 = Not at all Not being able to stop or control worryin = Not at all Worrying too much about different things: 0 = Not at all Trouble relaxin = Not at all Being so restless that it is hard to sit still: 0 = Not at all Becoming easily annoyed or irritable: 0 = Not at all Feeling afraid as if something awful might happen: 0 = Not at all Total PILY-7 score (0-4 normal; 5-9 mild; 10-14 moderate; 15-21 severe): 0 Source: Developed by Drs. Sherman Morales, Kathrine Rolon, Maurilio Rodriguez and colleagues, with an educational maci from [employer]. Review of Systems Const Denies chills, Denies fatigue, Denies fever(s) and Denies headache(s) ENT Denies dysphagia, Denies dizziness, Denies otalgia, Denies headache(s), Denies nasal congestion, Reports neck pain (recurrent - relieved with Ibuprofen), Denies odynophagia and Denies sore throat Card Denies chest pain, Denies palpitations and Denies dyspnea Resp Details: (+) pain over the right anterolateral chest wall, worse with exertion, coughing or increased activity Denies chest congestion, Denies cough and Denies dyspnea GI Denies abdominal pain, Denies constipation, Denies dysphagia, Denies heartburn, Denies diarrhea, Denies nausea, Denies odynophagia and Denies vomiting Denies dysuria, Denies nocturia and Denies urinary frequency Musc Reports back pain (occasionally), Reports arthralgias (left knee, on and off) and Reports neck pain (recurrent - relieved with Ibuprofen) Skin/Breast Denies rash Neuro Denies dizziness and Denies headache(s) Endo Denies fatigue and Denies palpitations Physical exam (Primary Care) Vital Signs: Last Vital Signs Pulse 100 11/23/24 16:26 BP 136/84 11/23/24 16:26 Pulse Ox 94 11/23/24 16:26 Oxygen Delivery Method Room Air 11/23/24 16:26 BMI result Body Mass Index 31.2 Tobacco/Smoking Status: Tobacco use Status Tobacco use date assessed 11/23/24 11/23/24 16:32 Patient Tobacco Use Status Never used Tobacco 11/23/24 16:32 e-Cigarette/Vaping Use Never Used 11/23/24 16:32 PHQ-9: PHQ-9 Score PHQ-9: Total score 0 11/23/24 16:56 Depression Screening Interpretation: Negative Thrive Assessment: Date of Thrive Assessment Date Thrive assessed 11/23/24 11/23/24 16:32 Currently or been in a relationship where the following occur: No concerns reported Const General: no acute distress and alert HENMT Ears: TM's normal bilaterally and EAC's normal Throat: Yes posterior oropharynx normal and Yes tonsils normal (no TP congestion) Neck Neck: No lymphadenopathy and Yes tender Thyroid: Thyroid normal Chest Other: (+) tenderness over the right anterolateral chest wall at the level of the right 4th and 5th ribs Resp Auscultation: clear to auscultation bilaterally, no crackles, no rales and no wheezes Cardio Rate: regular rate Rhythm: regular rhythm Heart sounds: no murmurs GI Palpation (GI): Soft to palpation and nontender Auscultation: normal bowel sounds General: Yes no CVA tenderness Back/Spine/Pelvis Back: no CVA tenderness Cervical Spine: Cervical spine tenderness Thoracic/Lumbar Spine: lumbar spinal tenderness Skin Rashes: no rashes Extrem General: Yes no clubbing, cyanosis or edema Left lower extremity: knee Details: tenderness Results Reviewed Results Reviewed: Laboratory Tests 11/22/24 11/22/24 07:50 07:55 WBC 7.6 Hgb 13.8 L Hct 42.0 Plt Count 249 Sodium 141 Potassium 3.9 Creatinine 0.99 Estimated GFR > 60 Fasting Glucose 143 H Hemoglobin A1c % 7.2 H Calcium 9.3 AST 22 ALT 32 Triglycerides 181 H Cholesterol 172 LDL Cholesterol, Calc 93 HDL Cholesterol 43 25-OH Vitamin D Total 72.2 TSH 1.17 Ur Specific [place] 1.015 Urine Protein Negative Urine Glucose (UA) Negative Urine Blood Negative Urine Nitrite Negative Ur Leukocyte Esterase Negative Microalb/Creat Ratio 3.7 Coding Level of Care Code Est Pt Level 4 (32757) Diagnoses Type 2 diabetes mellitus without complication, without long-term current use of insulin E11.9 Diabetes mellitus type: type 2 Diabetes mellitus buttermaker continuous churn insulin use: without buttermaker continuous churn use Diabetes mellitus complication status: without complication Essential hypertension I10 Pure hypercholesterolemia E78.00 Anemia, unspecified type D64.9 Anemia type: unspecified type Facet arthritis, degenerative, cervical spine M47.812 Primary osteoarthritis of left knee M17.12 Rib pain on right side R07.81 Vitamin D deficiency E55.9 Allergic rhinitis, unspecified seasonality, unspecified trigger J30.9 Allergic rhinitis trigger: unspecified Allergic rhinitis seasonality: unspecified Benign prostatic hyperplasia without lower urinary tract symptoms N40.0 Obesity (BMI 30-39.9) E66.9 Additional Codes PHQ-9 - 26451 - PHQ-9 Billing: Yes ([id number]) Assessment & Plan Assessment & Plan (1) Diabetes mellitus: Code(s): E11.9 - Type 2 diabetes mellitus without complications Category: Medical Qualifiers: Diabetes mellitus type: type 2 Diabetes mellitus buttermaker continuous churn insulin use: without buttermaker continuous churn use Diabetes mellitus complication status: without complication Qualified Code(s): E11.9 - Type 2 diabetes mellitus without complications Plan: His HgbA1c was at 7.2% on his labs done yesterday (was at 7.0% a few months ago) - goal is <7.0% Reinforced diabetic diet Continue Metformin 500 mg QD (2) Essential hypertension: Code(s): I10 - Essential (primary) hypertension Category: Medical Plan: Reinforced low sodium diet - goal is systolic BP of 120 to 130 mm or less Continue Metoprolol tartrate 50 mg BID (3) Pure hypercholesterolemia: Code(s): E78.00 - Pure hypercholesterolemia, unspecified Category: Medical Plan: Results of his labs done yesterday reviewed and discussed with patient - patient is advised that his serum triglyceride level has increased from previous, mostly due to his diabetes control getting worse lately Reinforced low cholesterol diet Continue Simvastatin 20 mg Q HS Will recheck his labs and fasting lipids in 4 months for follow up (4) Anemia: Code(s): D64.9 - Anemia, unspecified Category: Medical Qualifiers: Anemia type: unspecified type Qualified Code(s): D64.9 - Anemia, unspecified Plan: Patient remains slightly anemic on his recent labs although his H/H have been stable for a while now His iron profile as well as his B12 and folate levels were all normal on his recent labs Will continue to monitor his CBC regularly Will also check his Hgb electrophoresis in a few months for further evaluation (5) Facet arthritis, degenerative, cervical spine: Comment: S/P ACDF and posterior spinal fusion a few years ago - injury due to fall at [employer] in 2012 Code(s): M47.812 - Spondylosis without myelopathy or radiculopathy, cervical region Category: Medical Plan: Cerivcal spine x-rays done a couple of years ago showed (+) bony foraminal impingement at C5-C6 bilaterally States that he has been able to manage his neck pains adequately - takes some OTC Ibuprofen when needed with (+) relief (6) Primary osteoarthritis of left knee: Code(s): M17.12 - Unilateral primary osteoarthritis, left knee Category: Medical Plan: Left knee x-rays last done back in October 2017 showed (+) minimal medial compartment narrowing Will consider orthopedics referral if his knee symptoms progress or get worse (7) Rib pain on right side: Code(s): R07.81 - Pleurodynia Category: Medical Plan: Have advised patient that this is likely musculoskeletal strain brought about by his increased coughing recently Will send him for right rib x-rays for further evaluation (8) Vitamin D deficiency: Code(s): E55.9 - Vitamin D deficiency, unspecified Category: Medical Plan: Continue Vitamin D3 2000 units QD (9) Allergic rhinitis: Code(s): J30.9 - Allergic rhinitis, unspecified Category: Medical Qualifiers: Allergic rhinitis trigger: unspecified Allergic rhinitis seasonality: unspecified Qualified Code(s): J30.9 - Allergic rhinitis, unspecified Plan: Continue OTC Loratadine 10 mg QD PRN (10) Benign prostatic hyperplasia without lower urinary tract symptoms: Comment: S/P US-guided biopsy in 2019 - benign Code(s): N40.0 - Benign prostatic hyperplasia without lower urinary tract symptoms Category: Medical Plan: Patient was on Finasteride 5 mg QD in the past but he appears to have stopped taking this at some point - states that he's had no acute urinary issues so far Follow up with urology as scheduled (11) Obesity (BMI 30-39.9): Code(s): E66.9 - Obesity, unspecified Category: Medical Plan: Reinforced diet/exercise as tolerated/lose weight Plan Follow up in 4 months Orders: Orders XR ribs RT 2V Today R07.81 - Pleurodynia Comprehensive [place]. Panel Fast 4 Months E78.00 - Pure hypercholesterolemia, unspecified UA CC w/rflx Micro + Cult 4 Months R30.0 - Dysuria Hemoglobin Electrophoresis 4 Months R71.8 - Other abnormality of red blood cells Hemoglobin A1c 4 Months E11.9 - Type 2 diabetes mellitus without complications Complete Blood Count Auto Diff 4 Months D64.9 - Anemia, unspecified Lipid Panel 4 Months E78.00 - Pure hypercholesterolemia, unspecified Medications: Refilled lancets (FreeStyle Lancets) test blood sugar as directed once a day 28 gauge topical DAILY 100 ea 11RF E11.9 - Type 2 diabetes mellitus without complications blood sugar diagnostic (FreeStyle Lite Strips) As directed once a day 100 ea 11RF E11.9 - Type 2 diabetes mellitus without complications
== END 2024-11-23 17:03 | disposition home or self-care (01) ==
PROVIDERS: PCP Internal Medicine; Visit Provider Internal Medicine
DX: E11.9 Type 2 diabetes mellitus without complications (principal); I10 Essential (primary) hypertension; Z68.31 Body mass index [BMI] 31.0-31.9, adult; E66.9 Obesity, unspecified; E78.00 Pure hypercholesterolemia, unspecified; D64.9 Anemia, unspecified; M47.812 Spondylosis without myelopathy or radiculopathy, cervical region; M17.12 Unilateral primary osteoarthritis, left knee; R07.81 Pleurodynia; E55.9 Vitamin D deficiency, unspecified; J30.9 Allergic rhinitis, unspecified; N40.0 Benign prostatic hyperplasia without lower urinary tract symptoms

== ENCOUNTER → 2024-11-23 16:24 | Outpatient (BNVA) | payer MEDICARE, MEDICAID, SELFPAY | PROVIDERS: PCP Internal Medicine; Visit Provider Internal Medicine | DX: E11.9 Type 2 diabetes mellitus without complications (principal); E78.00 Pure hypercholesterolemia, unspecified; I10 Essential (primary) hypertension; D64.9 Anemia, unspecified; M47.812 Spondylosis without myelopathy or radiculopathy, cervical region; M17.12 Unilateral primary osteoarthritis, left knee; R07.81 Pleurodynia; E55.9 Vitamin D deficiency, unspecified; J30.9 Allergic rhinitis, unspecified; N40.0 Benign prostatic hyperplasia without lower urinary tract symptoms; E66.9 Obesity, unspecified | CPT/HCPCS: 96127; 99212 ==

== ENCOUNTER 2024-11-24 08:13 | Outpatient (REF) | payer MEDICARE, MEDICAID, SELFPAY ==
--- NOTE | ~2024-11-24 | XR_ITS ---
CLINICAL HISTORY: R07.81 - Pleurodynia 4 view, chest and right ribs Comparison: CR/MO/SR - CHEST 2 VIEWS - 08/28/19 07:55 EST Findings: No fractures or dislocations. The lungs are unremarkable. No pneumothorax. Degenerative change right shoulder. IMPRESSION: No evidence of acute cardiopulmonary disease. No acute rib findings. This document has been electronically signed by: Letitia Scott MD on 11/27/2024 09:17:56
== END 2024-11-24 08:14 | disposition home or self-care (01) ==
LOC: HO.XRAY 08:13
PROVIDERS: PCP Internal Medicine; Visit Provider Internal Medicine
DX: R07.81 Pleurodynia (principal)
CPT/HCPCS: 71101

== ENCOUNTER → 2024-11-24 08:25 | Outpatient (BNV) | payer MEDICARE, MEDICAID, SELFPAY | PROVIDERS: PCP Internal Medicine; Visit Provider Radiology Diagnostic Radiology | DX: R07.81 Pleurodynia (principal) | CPT/HCPCS: 71101 ==

== ENCOUNTER 2025-07-27 07:11 | Outpatient (REF) | payer MEDICARE, MEDICAID, SELFPAY ==
--- OUTSIDE RECORDS SUMMARY | 2025-07-27 07:14 | XMS_ITS | Clinical Summary ---
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 Dose: Not available; Form: Not available; Route: PO; Frequency: Not available; Directions: As directed; Details: Dispense: Tablet(s); Date: 04/30/2015 04/30/2015 Active GABAPENTIN ORAL Take 300 mg by mouth 3 (three) times a day. Dose: Not available; Form: Not available; Route: PO; Frequency: TID; Directions: 2 capsules TID; Details: Dispense: Capsule(s); Date: 02/13/2015 02/13/2015 Active SIMVASTATIN ORAL Take 20 mg by mouth nightly. Dose: Not available; Form: Not available; Route: PO; Frequency: Not available; Directions: As directed; Details: Dispense: Tablet(s); Date: 04/30/2015 04/30/2015 Active metoprolol (LOPRESSOR) 25 MG tablet Take 25 mg by mouth 2 (two) times a day. Active tapentadol ER, 12 hour, (NUCYNTA-ER) 50 mg Tb12 Take 50 mg by mouth 2 (two) times a day. Active Active Problems Problem Noted Date Diagnosed Date Cervical spinal stenosis 08/27/2015 Overview (09/30/2015): Spinal stenosis in cervical region Cervical spondylosis without myelopathy 02/22/20 15 Overview (09/30/2015): Cervical spondylosis without myelopathy Social History Tobacco Use Types Packs/Day Years Used Date Smoking Tobacco: Never Education Answer Date Recorded Are you interested in more education? Not on anson e 02/18/2023 Are you concerned about learning? Not on file 02/18/2023 No 02/18/2023 No 02/18/2023 Digital Access Answer Date Recorded No 03/21/2023 No 03/21/2023 No 03/21/2023 Reliable internet access at home? Not on file 03/21/2023 Device with a working camera? Not on file Sex and Gender Information Value Date Recorded Sex Assigned at Not on file Legal Sex Male 2:22 PM EDT Gender Identity Not on file Sexual Orientation Not on file Last Filed Vital Signs Vital Sign Reading Time Taken Comments Blood Pressure - - Pulse - - Temperature - - Respiratory Rate - - Oxygen Saturation - - Inhaled Oxygen Concentration - - Weight 81.6 kg (180 lb) 02/13/2015 2:42 PM EDT Height 162.6 cm (5' 4 ) 02/13/2015 2:42 PM EDT Body Mass Index 30.9 02/13/2015 2:42 PM EDT Plan of Treatment Health Maintenance Due Date Last Done Comments LIPID PANEL 1954 DEPRESSION SCREENING 1966 HEPATITIS C SCREENING 02/27/1972 SMOKING STATUS SCREENING (Once After 26 Yrs) 02/27/1980 COLOGUARD 1999 COLONOSCOPY 1999 COLORECTAL CANCER SCREENING 1999 FIT TEST 1999 FOBT 1999 SIGMOIDOSCOPY 1999 VIRTUAL COLONOSCOPY 1999 ZOSTER VACCINES (1 of 2) 02/27/2004 PNEUMOCOCCAL VACCINES (50+ years) (2 of 2 - PCV) 05/14/2017 05/14/2016 Adult Td,Tdap Booster 07/09/2018 07/09/2008 , 08/22/2001, 02/15/1990 INFLUENZA VACCINE (#1) 2025 9, 07/21/2018, 11/09/2017, Additional history exists COVID-19 VACCINE (2023-25 season) 2025 RSV VACCINE (1 - 1-dose 75+ series) 2029 MENINGOCOCCAL VACCINES (ACWY) Aged Out 04/11/1995 No longer eligible based on patient's age to complete this topic HEPATITIS A VACCINES Aged Out No long er eligible based on patient's age to complete this topic HIB VACCINES Aged Out No longer eligi ble based on patient's age to complete this topic MENINGOCOCCAL VACCINES (B) Aged Out N o longer eligible based on patient's age to complete this topic Medical Devices Not on file Insurance [employer] [phone] [place] [address] [facility] POS EPO Care Teams Marine 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 It is not the complete legal health record.[facility]
[2025-07-27 07:26] LABS: MANUAL DIFF FLAG NO
[2025-07-27 08:15] LABS: Hematocrit 41.0 % (42.0-52.0); Hemoglobin 13.4 g/dl (14.0-18.0); Imm Gran Abs Auto 0.02 X10*3/uL (0.00-0.03); Imm Gran Pct Auto 0.3 % (0.0-0.4); Lymphocytes Absolute Auto 2.9 X10*3/uL (1.2-4.9); Mean Corpuscular HGB Conc 32.7 g/dl (31.0-36.0); Mean Corpuscular Hemoglobin 25.8 pg (27.0-33.0); Mean Corpuscular Volume 79.0 fL (80.0-98.0); NRBC Abs Auto 0.000 X10*3/uL (0.0-0.012); NRBC Pct Auto 0.0 /100WBC (0.0-0.2); Platelet Count 243 X10*3/uL (160-400); Red Blood Count 5.19 X10*6/uL (4.60-5.80); White Blood Count 6.7 X10*3/uL (4.8-10.8)
[2025-07-27 08:28] LABS: Appearance Urine Clear; Glucose Urine UA Negative (Negative); PH 5.5 (5.0-9.0); Specific Gravity - Urine 1.020 (1.005-1.025)
[2025-07-27 08:43] LABS: Alanine Aminotransferase 26 U/L (0-40); Albumin Level 4.2 g/dL (3.5-5.0); Alkaline Phosphatase 66 U/L (39-117); Anion Gap 10 (12-20); Aspartate Amino Transferase 24 U/L (5-37); Blood Urea Nitrogen 18 mg/dL (9-16); Calcium 8.9 mg/dL (8.4-10.2); Carbon Dioxide 27 mmol/L (22-29); Chloride 107 mmol/L (96-108); Cholesterol 161 mg/dL (<200); Estimated Glomerular Filt Rate > 60; HDL Cholesterol 45 mg/dL (>40); Potassium 3.6 mmol/L (3.3-5.1); Sodium 140 mmol/L (135-145); Total Protein 7.4 g/dL (6.5-8.0); Triglycerides 119 mg/dL (<150)
[2025-08-01 09:34] LABS: Hematocrit 42.8 % (38.5-50.0); Hemoglobin 13.5 g/dL (13.2-17.1); MCH 25.9 pg (27.0-33.0); MCV 82.0 fL (80.0-100.0); RBC 5.22 Million/uL (4.20-5.80); RDW 15.9 % (11.0-15.0)
== END 2025-07-27 07:12 | disposition home or self-care (01) ==
LOC: HO.LAB 07:11
PROVIDERS: PCP Internal Medicine; Visit Provider Internal Medicine
DX: E11.9 Type 2 diabetes mellitus without complications (principal); D64.9 Anemia, unspecified; E78.00 Pure hypercholesterolemia, unspecified; R30.0 Dysuria
CPT/HCPCS: 36415; 80053; 80061; 81003; 83020; 83036; 85014; 85018; 85025; 85041

== ENCOUNTER 2025-07-30 12:40 | Outpatient (AMB) | payer MEDICARE, MEDICAID, SELFPAY ==
[2025-07-30 12:47] VITALS: BP 136/74; PULSE 83; O2SAT 95; BMI 31.0
--- NOTE | 2025-07-30 12:47 | MHC.PC.OV ---
Vital Signs 07/30/25 12:47 Height 5 ft 4 in Weight 180 lb 6 oz BMI 31.0 BP 136/74 Blood Pressure Location Lt brachial Position Sitting Pulse 83 Pulse Source Pulse Oximeter Pulse Oximetry (%) 95 Oxygen Delivery Method Room Air Intake Visit Reasons: 4 month f/u Manager Of Case Management Required: No Accompanied by: Self / Same As Patient Allergies nut - unspecified Allergy (Severe, Verified 07/30/25 13:22) Difficulty Breathing Medication List - Last Reconciled 07/30/25 by Nir Moreno MD blood sugar diagnostic (FreeStyle Lite Strips) As directed once a day cholecalciferol (vitamin D3) 50 mcg PO DAILY 90 days lancets (FreeStyle Lancets) 28 gauge topical DAILY metformin 500 mg PO DAILY 90 days metoprolol tartrate 50 mg PO BID 90 days simvastatin 20 mg PO BEDTIME 90 days Tobacco use date assessed: 07/30/25 Fall risk assessment: No Falls in past year Last assessed Fall Risk: 07/30/25 Dental Screening Dental Screen Date: 07/30/25 Did you have a dental visit in the last 12 months?: No Did you have a dental problem in the last 6 months where you did not have access to dental care?: No Was dental information given to patient?: No HPI 4 month f/u HPI Details Patient comes in today for his follow up visit States that he feels okay He denies any headaches or dizziness Denies any chest pains, no SOB No nausea/vomiting, no abdominal pain No change in bowel habits noted Needs his Vitamin D Rx refilled He had his follow up labs done a few days ago - to discuss his results [facility] Medical History Essential hypertension Obesity (BMI 30-39.9) Benign prostatic hyperplasia without lower urinary tract symptoms Allergic rhinitis Vitamin D deficiency Primary osteoarthritis of left knee Facet arthritis, degenerative, cervical spine Pure hypercholesterolemia Diabetes mellitus Surgical History History of prostate biopsy (~2019) History of cervical spinal surgery Family History Father No problems noted. Mother No problems noted. Social History (Reviewed 07/30/25 @ 12:49 by EMMA Gibbs Housing: House Patient Tobacco Use Status: Never used Tobacco e-Cigarette/Vaping Use: Never Used Second Hand Smoke Exposure: Yes service: No Current occupational status: retired Cognitive needs: No Hearing needs: No Vision needs: Yes (Glasses) Questionnaire PHQ-9 Over the last 2 weeks, how often have you been bothered by any of the following problems? Depression Screening Interpretation: Negative Depression Screening Done: Yes Source: Developed by Drs. Sherman Morales, Maurilio Hilario and colleagues, with an educational maci from [facility]. Thrive Questionnaire Date Thrive assessed: 11/23/24 Currently or been in a relationship where the following occur: No concerns reported THRIVE Score: 0 AUDIT C Alcohol Use Questionnaire (AUDIT-C) 1. How often do you have a drink containing alcohol?: Never 3. How often do you have six or more drinks on one occasion?: Never Total Score: 0 Score Reviewed/Action Taken: Yes PILY-7 AMB Questionnaire PILY-7 Date PILY - 7 assessed: 11/23/24 Source: Developed by Drs. Sherman Morales, Maurilio Hilario and colleagues, with an educational maci from [facility]. Review of Systems Const Denies chills, Denies fatigue, Denies fever(s) and Denies headache(s) ENT Denies dysphagia, Denies dizziness, Denies otalgia, Denies headache(s), Reports neck pain (recurrent - relieved with Ibuprofen), Denies odynophagia and Denies sore throat Card Denies chest pain, Denies palpitations and Denies dyspnea Resp Denies chest congestion, Denies cough and Denies dyspnea GI Denies abdominal pain, Denies constipation, Denies dysphagia, Denies heartburn, Denies diarrhea, Denies nausea, Denies odynophagia and Denies vomiting Denies difficulty urinating, Denies dysuria, Denies nocturia and Denies urinary frequency Musc Reports back pain (on and off), Reports arthralgias (left knee, on and off) and Reports neck pain (recurrent - relieved with Ibuprofen) Skin/Breast Denies rash Neuro Denies dizziness and Denies headache(s) Endo Denies fatigue and Denies palpitations Physical exam (Primary Care) Vital Signs: Last Vital Signs Pulse 83 07/30/25 12:47 BP 136/74 07/30/25 12:47 Pulse Ox 95 07/30/25 12:47 Oxygen Delivery Method Room Air 07/30/25 12:47 BMI result Body Mass Index 31.0 Tobacco/Smoking Status: Tobacco use Status Tobacco use date assessed 07/30/25 07/30/25 12:53 Patient Tobacco Use Status Never used Tobacco 07/30/25 12:53 e-Cigarette/Vaping Use Never Used 07/30/25 12:53 Depression Screening Interpretation: Negative Thrive Assessment: Date of Thrive Assessment Date Thrive assessed 11/23/24 07/30/25 12:53 Currently or been in a relationship where the following occur: No concerns reported Const General: no acute distress and alert HENMT Ears: TM's normal bilaterally and EAC's normal Throat: Yes posterior oropharynx normal and Yes tonsils normal (no TP congestion) Neck Neck: No lymphadenopathy and Yes tender Thyroid: Thyroid normal Resp Auscultation: clear to auscultation bilaterally, no crackles, no rales and no wheezes Cardio Rate: regular rate Rhythm: regular rhythm Heart sounds: no murmurs GI Palpation (GI): Soft to palpation and nontender Auscultation: normal bowel sounds General: Yes no CVA tenderness Back/Spine/Pelvis Back: no CVA tenderness Cervical Spine: Cervical spine tenderness Thoracic/Lumbar Spine: lumbar spinal tenderness Skin Rashes: no rashes Extrem General: Yes no clubbing, cyanosis or edema Left lower extremity: knee Details: tenderness Results Reviewed Results Reviewed: Laboratory Tests 07/27/25 07/27/25 07:18 07:25 WBC 6.7 Hgb 13.4 L Hct 41.0 L Plt Count 243 Sodium 140 Potassium 3.6 Creatinine 1.02 Estimated GFR > 60 Fasting Glucose 144 H Hemoglobin A1c % 7.4 H Calcium 8.9 AST 24 ALT 26 Triglycerides 119 Cholesterol 161 LDL Cholesterol, Calc 93 HDL Cholesterol 45 Ur Specific [place] 1.020 Urine Protein Negative Urine Glucose (UA) Negative Urine Blood Negative Urine Nitrite Negative Ur Leukocyte Esterase Negative Coding Level of Care Code Est Pt Level 4 (24508) Diagnoses Type 2 diabetes mellitus without complication, without long-term current use of insulin E11.9 Diabetes mellitus complication status: without complication Diabetes mellitus manager long term care insulin use: without halfway use Diabetes mellitus type: type 2 Essential hypertension I10 Pure hypercholesterolemia E78.00 Anemia, unspecified type D64.9 Anemia type: unspecified type Facet arthritis, degenerative, cervical spine M47.812 Primary osteoarthritis of left knee M17.12 Vitamin D deficiency E55.9 Allergic rhinitis, unspecified seasonality, unspecified trigger J30.9 Allergic rhinitis seasonality: unspecified Allergic rhinitis trigger: unspecified Benign prostatic hyperplasia without lower urinary tract symptoms N40.0 Obesity (BMI 30-39.9) E66.9 Assessment & Plan Assessment & Plan (1) Diabetes mellitus: Code(s): E11.9 - Type 2 diabetes mellitus without complications Category: Medical Qualifiers: Diabetes mellitus complication status: without complication Diabetes mellitus manager long term care insulin use: without manager long term care use Diabetes mellitus type: type 2 Qualified Code(s): E11.9 - Type 2 diabetes mellitus without complications Plan: His HgbA1c was at 7.4% on his labs done a few days ago (was previously at 7.2% a few months ago and 7.0% around this time last year) - goal is <7.0% Have advised patient that over the past year, his HgbA1c has been slowly but consistently inching up and if this continues and he is not able to get his diabetes control back to goal, then we will need to make some adjustments to his medication(s) Reinforced diabetic diet - he admits that he was on vacation a few months ago and was not very compliant with his diet then Continue Metformin 500 mg QD for now and will have him recheck his HgbA1c and FBS in a few months for follow up (2) Essential hypertension: Code(s): I10 - Essential (primary) hypertension Category: Medical Plan: Reinforced low sodium diet - goal is systolic BP of 120 to 130 mm or less Continue Metoprolol tartrate 50 mg BID (3) Pure hypercholesterolemia: Code(s): E78.00 - Pure hypercholesterolemia, unspecified Category: Medical Plan: Results of his labs done a few days ago reviewed and discussed with patient Reinforced low cholesterol diet Continue Simvastatin 20 mg Q HS Will recheck his labs and fasting lipids in 4 months for follow up (4) Anemia: Code(s): D64.9 - Anemia, unspecified Category: Medical Qualifiers: Anemia type: unspecified type Qualified Code(s): D64.9 - Anemia, unspecified Plan: Patient remains slightly anemic on his recent labs although his H/H have been stable for a while His iron profile as well as his B12 and folate levels were all normal on his recent labs Will continue to monitor his CBC regularly We also checked his Hgb electrophoresis with his recent labs for further evaluation - results are still pending at this time (5) Facet arthritis, degenerative, cervical spine: Comment: S/P ACDF and posterior spinal fusion a few years ago - injury due to fall at [employer] in 2012 Code(s): M47.812 - Spondylosis without myelopathy or radiculopathy, cervical region Category: Medical Plan: Cerivcal spine x-rays done a couple of years ago showed (+) bony foraminal impingement at C5-C6 bilaterally States that he has been able to manage his neck pains adequately - takes some OTC Ibuprofen when needed with (+) relief (6) Primary osteoarthritis of left knee: Code(s): M17.12 - Unilateral primary osteoarthritis, left knee Category: Medical Plan: Left knee x-rays last done back in October 2017 showed (+) minimal medial compartment narrowing Will consider orthopedics referral if his knee symptoms progress or get worse (7) Vitamin D deficiency: Code(s): E55.9 - Vitamin D deficiency, unspecified Category: Medical Plan: Continue Vitamin D3 2000 units QD (8) Allergic rhinitis: Code(s): J30.9 - Allergic rhinitis, unspecified Category: Medical Qualifiers: Allergic rhinitis seasonality: unspecified Allergic rhinitis trigger: unspecified Qualified Code(s): J30.9 - Allergic rhinitis, unspecified Plan: Continue OTC Loratadine 10 mg QD PRN (9) Benign prostatic hyperplasia without lower urinary tract symptoms: Comment: S/P US-guided biopsy in 2019 - benign Code(s): N40.0 - Benign prostatic hyperplasia without lower urinary tract symptoms Category: Medical Plan: Patient was on Finasteride 5 mg QD in the past but he appears to have stopped taking this at some point - states that he's had no acute urinary issues so far Follow up with urology as scheduled (10) Obesity (BMI 30-39.9): Code(s): E66.9 - Obesity, unspecified Category: Medical Plan: Reinforced diet/exercise as tolerated/lose weight Plan Follow up in 4 months Orders: Orders Comprehensive [place]. Panel Fast 4 Months E78.00 - Pure hypercholesterolemia, unspecified Lipid Panel 4 Months E78.00 - Pure hypercholesterolemia, unspecified Hemoglobin A1c 4 Months E11.9 - Type 2 diabetes mellitus without complications Complete Blood Count Auto Diff 4 Months D64.9 - Anemia, unspecified Microalbumin, Random (w Creat) 4 Months E11.9 - Type 2 diabetes mellitus without complications UA CC w/rflx Micro + Cult 4 Months R30.0 - Dysuria TSH reflex Free T4 4 Months E78.00 - Pure hypercholesterolemia, unspecified Medications: Refilled cholecalciferol (vitamin D3) 50 mcg PO DAILY 90 caps 3RF 90 days E55.9 - Vitamin D deficiency, unspecified
--- OUTSIDE RECORDS SUMMARY | 2025-07-30 15:31 | XMS_ITS | Clinical Summary ---
Author Organization [facility] Address [address] [place] [phone] Phone Care Team Providers Care Chemical Laboratory Scientist Name Role Phone Name, Darrin PATEL Primary Care Provider [phone] Allergies Active Allergy Reactions Criticality Noted Date Comments Peanut Other (See Comments) 04/30/2015 COUGHS UNCONTROLLABLY Phs Other Free Text-See Phs Viewer 04/30/2015 [place] Medications ASPIRIN ORAL Take 81 mg by [...] Not on file Insurance [employer] [phone] [place] [address] [facility] POS EPO Care Teams Chemical Laboratory Scientist Relationship Specialty Start Date End Date Name, MD Darrin [address] [place] [id number] PCP - General Internal Medicine 02/26/15 Additional Source Comments The information contained in this document represents components of the legal health record. It is not the complete legal health record.[facility]
== END 2025-07-30 13:34 | disposition home or self-care (01) ==
LOC: HO.HMCH 12:41
PROVIDERS: PCP Internal Medicine; Visit Provider Internal Medicine
DX: E11.9 Type 2 diabetes mellitus without complications (principal); I10 Essential (primary) hypertension; E66.9 Obesity, unspecified; Z68.31 Body mass index [BMI] 31.0-31.9, adult; E78.00 Pure hypercholesterolemia, unspecified; D64.9 Anemia, unspecified; M47.812 Spondylosis without myelopathy or radiculopathy, cervical region; M17.12 Unilateral primary osteoarthritis, left knee; E55.9 Vitamin D deficiency, unspecified; J30.9 Allergic rhinitis, unspecified; N40.0 Benign prostatic hyperplasia without lower urinary tract symptoms

== ENCOUNTER → 2025-07-30 12:40 | Outpatient (BNVA) | payer MEDICARE, MEDICAID, SELFPAY | PROVIDERS: PCP Internal Medicine; Visit Provider Internal Medicine | DX: E11.9 Type 2 diabetes mellitus without complications (principal); I10 Essential (primary) hypertension; E78.00 Pure hypercholesterolemia, unspecified; D64.9 Anemia, unspecified; M47.812 Spondylosis without myelopathy or radiculopathy, cervical region; M17.12 Unilateral primary osteoarthritis, left knee; E55.9 Vitamin D deficiency, unspecified; J30.9 Allergic rhinitis, unspecified; N40.0 Benign prostatic hyperplasia without lower urinary tract symptoms; E66.9 Obesity, unspecified; R30.0 Dysuria | CPT/HCPCS: 99212 ==